=== PATIENT | male | born 1970 | race American Indian/Alaskan Native ===

== ENCOUNTER 2018-04-18 03:34 | Inpatient (IN) | payer MEDICARE, SELFPAY ==
--- NOTE | 2018-04-18 04:12 | XRay Report ---
PROCEDURE: XR CHEST 1V AP TECHNIQUE: A portable upright view the chest was submitted. HISTORY: Chest Pain COMPARISONS: None FINDINGS: The heart is moderately enlarged. The lungs are not congested. There are no infiltrates or effusions. The skeletal structures do not show any acute changes. IMPRESSION: Cardiomegaly. No acute infiltrates or congestion.. This document is electronically signed by Anthony Charlton MD., April 18 2018 04:10:08 AM ET
[2018-04-18 04:15] LABS: Basophils # (Auto) 0.1 K/mm3 (0.0-0.1); Basophils % (Auto) 0.6 % (0.0-1.8); Eosinophils % (Auto) 0.3 % (0.0-4.3); Hematocrit 45.4 % (35.5-45.6); Hemoglobin 14.6 gm/dl (11.8-15.2); Lymphocytes # (Auto) 2.2 K/mm3 (1.2-5.4); Lymphocytes % (Auto) 19.3 % (13.4-35.0); Mean Corpuscular HGB Conc 32 % (32-34); Mean Corpuscular Volume 93 fl (84-94); Monocytes # (Auto) 0.7 K/mm3 (0.0-0.8); Monocytes % (Auto) 6.3 % (0.0-7.3); Platelet Count 203 K/mm3 (140-440); Red Blood Count 4.89 M/mm3 (3.65-5.03); Red Cell Distribution Width 14.2 % (13.2-15.2)
[2018-04-18 04:41] LABS: BUN/Creatinine Ratio 17; Blood Urea Nitrogen 12 mg/dL (9-20); Calcium 9.6 mg/dL (8.4-10.2); Hemolysis Index 13
--- NOTE | 2018-04-18 06:17 | Emergency Department Report ---
ED Chest Pain HPI - General Chief Complaint: Chest Pain Stated Complaint: CHEST PAIN/SOB Time Seen by Provider: 04/18/18 06:05 Source: patient Mode of arrival: Ambulatory Limitations: No Limitations - History of Present Illness Initial Comments: Patient is a 47-year-old male presents emergency room with complaints of chest pain shortness of breath that started 1 hour prior to arrival. Patient states chest pain radiating to his left shoulder. Patient states the symptoms are worse with exertion and better with rest. Patient is also complaining of leg edema for several weeks. Patient denies fever and chills. Patient denies abdominal pain. Patient denies acid reflux. Patient states the pain is a 8 out of 10. MD Complaint: chest pain -: Sudden, Last night Onset: during rest Pain Location: substernal, left chest Pain Radiation: LUE Severity scale (0 -10): 8 Quality: tightness Consistency: constant Improves With: rest Worsens With: exertion re: dyspnea. denies: nausea, vomting, diaphoresis, sense of impending doom Other Symptoms: leg swelling. denies: cough, fever, syncope, rash, acid taste in mouth, palpitations, burping Treatments Prior to Arrival: none Aspirin use within the Past 7 Days: (0) No - Related Data On Oral Contraceptives: No Home Medications Medication Instructions Recorded Confirmed Last Taken Aspirin [Aspir-Low] 81 mg PO DAILY 04/18/18 04/18/18 Unknown Atenolol 50 mg PO DAILY 04/18/18 04/18/18 Unknown Bumetanide [Bumex 1 mg tab] 1 mg PO DAILY 04/18/18 04/18/18 Unknown Lisinopril/Hydrochlorothiazide 1 tab PO QDAY 04/18/18 04/18/18 Unknown [Zestoretic 20-25 mg] Potassium Chloride [K-Dur] 10 meq PO QDAY 04/18/18 04/18/18 Unknown Rosuvastatin Calcium 10 mg PO DAILY 04/18/18 04/18/18 Unknown metFORMIN [Glucophage] 500 mg PO DAILY 04/18/18 04/18/18 Unknown Allergies Allergy/AdvReac Type Severity Reaction Status Date / Time No Known Allergies Allergy Unverified 06/28/13 09:56 Heart Score - HEART Score History: Moderately suspicious EKG: Non-specific Age: 45-65 Risk factors: 1-2 risk factors Troponin: < normal limit HEART Score: 4 ED Review of Systems ROS: Stated complaint: CHEST PAIN/SOB Other details as noted in HPI Constitutional: denies: chills, fever Eyes: denies: eye pain, eye discharge, vision change ENT: denies: ear pain, throat pain Respiratory: shortness of breath, SOB with exertion, SOB at rest. denies: c ough, wheezing Cardiovascular: chest pain. denies: palpitations Endocrine: no symptoms reported Gastrointestinal: denies: abdominal pain, nausea, diarrhea Genitourinary: denies: urgency, dysuria Musculoskeletal: denies: back pain, joint swelling, arthralgia Skin: denies: rash, lesions Neurological: denies: headache, weakness, paresthesias Psychiatric: denies: anxiety, depression Hematological/Lymphatic: denies: easy bleeding, easy bruising ED Past Medical Hx - Past Medical History Previous Medical History?: Yes Hx Hypertension: Yes Additional medical history: Obesity - Surgical History Past Surgical History?: No - Family History Family history: no significant - Social History Smoking Status: Never Smoker Substance Use Type: None - Medications Home Medications: Home Medications Medication Instructions Recorded Confirmed Last Taken Type Aspirin [Aspir-Low] 81 mg PO DAILY 04/18/18 04/18/18 Unknown History Atenolol 50 mg PO DAILY 04/18/18 04/18/18 Unknown History Bumetanide [Bumex 1 mg tab] 1 mg PO DAILY 04/18/18 04/18/18 Unknown History Lisinopril/Hydrochlorothiazide 1 tab PO QDAY 04/18/18 04/18/18 Unknown History [Zestoretic 20-25 mg] Potassium Chloride [K-Dur] 10 meq PO QDAY 04/18/18 04/18/18 Unknown History Rosuvastatin Calcium 10 mg PO DAILY 04/18/18 04/18/18 Unknown History metFORMIN [Glucophage] 500 mg PO DAILY 04/18/18 04/18/18 Unknown History ED Physical Exam - General Limitations: No Limitations General appearance: alert, in no apparent distress - Head Head exam: Present: atraumatic, normocephalic - Eye Eye exam: Present: normal appearance, PERRL Pupils: Present: normal accommodation - ENT ENT exam: Present: mucous membranes moist - Neck Neck exam: Present: normal inspection - Respiratory Respiratory exam: Present: normal lung sounds bilaterally. Absent: respiratory distress - Cardiovascular Cardiovascular Exam: Present: regular rate, normal rhythm. Absent: systolic murmur, diastolic murmur, rubs, gallop - GI/Abdominal GI/Abdominal exam: Present: soft, normal bowel sounds - Rectal Rectal exam: Present: deferred - Extremities Exam Extremities exam: Present: pedal edema. Absent: calf tenderness - Back Exam Back exam: Present: normal inspection - Neurological Exam Neurological exam: Present: alert, oriented X3 - Psychiatric Psychiatric exam: Present: normal affect, normal mood - Skin Skin exam: Present: warm, dry, intact, normal color. Absent: rash ED Course Vital Signs 04/18/18 04/18/18 04/18/18 03:36 03:56 04:00 Temperature 98.5 F Pulse Rate 72 68 Respiratory 20 30 H 27 H Rate Blood Pressure 200/117 182/101 O2 Sat by Pulse 92 89 Oximetry 04/18/18 04/18/18 04/18/18 04:16 04:30 04:46 Temperature Pulse Rate 86 68 56 L Respiratory 24 14 27 H Rate Blood Pressure 150/75 140/73 146/72 O2 Sat by Pulse 89 82 L 79 L Oximetry 04/18/18 04/18/18 04/18/18 05:00 05:16 05:30 Temperature Pulse Rate 68 62 71 Respiratory 11 L 25 H 24 Rate Blood Pressure 142/68 160/93 156/85 O2 Sat by Pulse 89 72 L 94 Oximetry 04/18/18 04/18/18 04/18/18 05:46 06:00 06:30 Temperature Pulse Rate 57 L 65 Respiratory 24 16 Rate Blood Pressure 167/82 134/54 170/64 O2 Sat by Pulse 95 98 95 Oximetry 04/18/18 04/18/18 04/18/18 06:46 06:50 07:00 Temperature Pulse Rate 57 L Respiratory Rate Blood Pressure 172/63 167/82 154/88 O2 Sat by Pulse 94 99 Oximetry 04/18/18 04/18/18 04/18/18 07:16 07:30 07:46 Temperature Pulse Rate 46 L Respiratory 23 Rate Blood Pressure 149/73 154/72 163/88 O2 Sat by Pulse 98 93 96 Oximetry 04/18/18 04/18/18 04/18/18 08:00 08:16 09:10 Temperature Pulse Rate 47 L 71 73 Respiratory 24 22 11 L Rate Blood Pressure 186/107 199/93 126/54 O2 Sat by Pulse 91 95 93 Oximetry 04/18/18 04/18/18 04/18/18 09:16 09:30 09:46 Temperature Pulse Rate 71 74 65 Respiratory 17 21 18 Rate Blood Pressure 118/49 138/67 138/67 O2 Sat by Pulse 93 94 89 Oximetry 04/18/18 04/18/18 04/18/18 10:00 10:16 10:30 Temperature Pulse Rate 76 67 72 Respiratory 17 20 20 Rate Blood Pressure 155/69 155/69 121/56 O2 Sat by Pulse 87 91 89 Oximetry 04/18/18 04/18/18 04/18/18 10:46 11:00 11:16 Temperature Pulse Rate 60 70 68 Respiratory 25 H 12 12 Rate Blood Pressure 121/56 121/56 121/56 O2 Sat by Pulse 92 93 90 Oximetry 04/18/18 04/18/18 04/18/18 11:30 11:46 12:00 Temperature Pulse Rate 72 62 69 Respiratory 11 L 23 16 Rate Blood Pressure 132/57 132/57 132/57 O2 Sat by Pulse 95 92 94 Oximetry 04/18/18 04/18/18 04/18/18 12:16 12:30 12:46 Temperature Pulse Rate 66 56 L 64 Respiratory 24 16 22 Rate Blood Pressure 132/57 132/62 132/62 O2 Sat by Pulse 92 94 96 Oximetry 04/18/18 04/18/18 04/18/18 13:00 13:16 13:30 Temperature Pulse Rate 64 65 62 Respiratory 18 25 H 20 Rate Blood Pressure 132/62 132/62 132/62 O2 Sat by Pulse 93 92 93 Oximetry 04/18/18 04/18/18 04/18/18 13:46 14:00 14:16 Temperature Pulse Rate 73 67 70 Respiratory 22 25 H 16 Rate Blood Pressure 132/62 132/62 132/62 O2 Sat by Pulse 90 91 95 Oximetry 04/18/18 14:30 Temperature Pulse Rate 70 Respiratory 17 Rate Blood Pressure 120/66 O2 Sat by Pulse 93 Oximetry - Reevaluation(s) Reevaluation #1: BP elevated. Patient will be given hydralazine. On the monitor pressure is 201/100. 04/18/18 06:05 Patient will be admitted to the hospital service. Patient agrees with plan of care and admission. Discussed all results with patient. Her pressure has improved 04/18/18 07:36 - Consultations Consultation #1: Hospitalist consulted for admission. Hospitalist to admit patient and assume care of patient. Bridging orders were placed for hospitalist 04/18/18 07:39 ROBBIE score - Robbie Score Age > 65: (0) No Aspirin use within the Past 7 Days: (0) No 3 or more CAD Risk Factors: (0) No 2 or more Angina events in past 24 hrs: (1) Yes Known CAD with more than 50% Stenosis: (0) No Elevated Cardiac Markers: (0) No ST Deviation Greater than 0.5mm: (0) No ROBBIE Score: 1 ED Medical Decision Making - Lab Data Result diagrams: 04/18/18 04:04 04/18/18 04:04 - EKG Data -: EKG Interpreted by Me EKG shows normal: sinus rhythm, axis, intervals, QRS complexes, ST-T waves Rate: normal - Radiology Data Radiology results: report reviewed interpreted by me: Cardiomegaly - Medical Decision Making Patient is a 47-year-old male or since emergency room with complaints of chest pain and shortness of breath. Patient patient will be admitted to the hospitalist service for further evaluation treatment. Patient also had a complaint of bilateral lower extremity edema. BNP negative. Labs unremarkable. Troponins negative. EKG reviewed. Chest x-ray reviewed and shows cardiomegaly. Even though the BNP is negative it appears the patient is a CHF exacerbation. His blood pressure also high and treated with hydralazine. - Differential Diagnosis chest pain. ACS. Shortness of breath. chf Critical Care Time: Yes Critical care attestation.: If time is entered above; I have spent that time in minutes in the direct care of this critically ill patient, excluding procedure time. Critical Care Time: 45 minutes ED Disposition Clinical Impression: Leg edema, SOB (shortness of breath), Hypertensive urgency Chest pain Qualifiers: Chest pain type: unspecified Qualified Code(s): R07.9 - Chest pain, unspecified Hypertension Qualifiers: Hypertension type: essential hypertension Qualified Code(s): I10 - Essential (primary) hypertension Disposition: OP ADMIT IP TO THIS HOSP Is pt being admited?: Yes Does the pt Need Aspirin: No Condition: Critical Time of Disposition: 07:39
[2018-04-18] MEDS ORDERED: APRESOLINE IV ONE (06:22)
[2018-04-18] MEDS ORDERED: ASPIRIN PO ONE (06:22)
[2018-04-18] MEDS ORDERED: MORPHINE IV PRN (08:09)
[2018-04-18] MEDS ORDERED: SODIUM CHLORIDE FLUSH SYRINGE 10 ML IV PRN ×2 (08:09)
[2018-04-18] MEDS ORDERED: ZOFRAN IV PRN (08:09)
[2018-04-18] MEDS ORDERED: TYLENOL PO PRN (08:09)
[2018-04-18 08:55] LABS: Chol/HDL Ratio 4.71 %
[2018-04-18] MEDS ORDERED: FLEXERIL PO PRN (10:00)
--- NOTE | 2018-04-18 10:37 | History and Physical Report ---
History of Present Illness Date of examination: 04/18/18 Date of admission: 04/18/18 07:43 Chief complaint: chest pain for 2-3 weeks with worsening shortness of breath. History of present illness: Patient is a 47 year old male with hx of DM, HTN, CHF, Presenting to the ED with complaint of worsening chest pain rated a 8/10 in intensity and associated shortness of breath. The patient has been with chest pain for about 6 weeks on and off but states in the last 1 hour it has been constant and dull. The patient also reports that the pain has been radiating to the left shoulder. He reports that he has been unable to lay supine for years. He denies any fever, cough, nausea and vomiting, diarrhea, BRBPR. He reports worsening lower ext edema. Although he reports complaince with medication he reports non compliance with salt and water intake Past History Past Medical History: diabetes, hypertension, hyperlipidemia. denies: atrial fib, arrhythmia, CAD, DVT, PVD, stroke Past Surgical History: No surgical history Social history: lives with family, full code Family history: no significant family history Medications and Allergies Allergies Allergy/AdvReac Type Severity Reaction Status Date / Time No Known Allergies Allergy Unverified 06/28/13 09:56 Home Medications Medication Instructions Recorded Confirmed Last Taken Type Aspirin [Aspir-Low] 81 mg PO DAILY 04/18/18 04/18/18 Unknown History Atenolol 50 mg PO DAILY 04/18/18 04/18/18 Unknown History Bumetanide [Bumex 1 mg tab] 1 mg PO DAILY 04/18/18 04/18/18 Unknown History Lisinopril/Hydrochlorothiazide 1 tab PO QDAY 04/18/18 04/18/18 Unknown History [Zestoretic 20-25 mg] Potassium Chloride [K-Dur] 10 meq PO QDAY 04/18/18 04/18/18 Unknown History Rosuvastatin Calcium 10 mg PO DAILY 04/18/18 04/18/18 Unknown History metFORMIN [Glucophage] 500 mg PO DAILY 04/18/18 04/18/18 Unknown History Active Meds: Active Medications Acetaminophen (Tylenol) 650 mg PO Q4H PRN PRN Reason: Pain MILD(1-3)/Fever >100.5/MADERA Aspirin (Ecotrin) 325 mg PO QDAY [facility]O Atorvastatin Calcium (Lipitor) 40 mg PO QHS [facility]O Cyclobenzaprine HCl (Flexeril) 10 mg PO TID PRN PRN Reason: Pain Furosemide (Lasix) 40 mg IV 0600,1800 [facility] Morphine Sulfate (Morphine) 2 mg IV Q4H PRN PRN Reason: Pain, Moderate (4-6) Ondansetron HCl (Zofran) 4 mg IV Q8H PRN PRN Reason: Nausea And Vomiting Sodium Chloride (Sodium Chloride Flush Syringe 10 Ml) 10 ml IV BID AMYITO Sodium Chloride (Sodium Chloride Flush Syringe 10 Ml) 10 ml IV PRN PRN PRN Reason: LINE FLUSH Sodium Chloride (Sodium Chloride Flush Syringe 10 Ml) 10 ml IV PRN PRN PRN Reason: LINE FLUSH Review of Systems All systems: negative Constitutional: no fever, no chills, no weakness, no malaise, no poor appetite, no daytime sleepiness, no chronic pain Ears, nose, mouth and throat: no ear pain, no ear discharge, no nose pain Cardiovascular: chest pain, orthopnea, edema, shortness of breath, dyspnea on exertion, paroxysmal nocturnal dyspnea, no palpitations, no rapid/irregular heart beat, no syncope, no lightheadedness Respiratory: shortness of breath, dyspnea on exertion, sleep apnea, no cough, no cough with sputum, no excessive sputum, no hemoptysis, no congestion, no wheezing, no pain on inspiration Gastrointestinal: no abdominal pain, no nausea, no vomiting, no constipation, no change in bowel habits, no melena, no loss of appetite, no heartburn, no dyspepsia/bloating, no early satiety Musculoskeletal: no neck stiffness, no shooting arm pain, no low back pain, no shooting leg pain, no leg numbness/tingling, no morning stiffness, no muscle cramps, no fractures, no prior amputations, no arthritis Integumentary: dryness, no pruritis, no sores, no jaundice, no darkening of skin, no acne, no brittle nails, no striae, no hirsutism, no foot/leg ulcers, no onychomycosis Neurological: no transient paralysis, no weakness, no numbness, no syncope, no migraines, no convulsions, no confusion, no sensory deficit, no loss of vision, no hearing difficulties, no paralysis Psychiatric: no memory loss, no change in sleep habits, no sleep disturbances, no hypersomnia, no change in appetite, no suicidal ideation, no hopelessness, no anxiety attacks, no confusion Endocrine: no polyphagia, no excessive thirst, no polyuria, no proptosis, no high blood sugars Hematologic/Lymphatic: no easy bruising Allergic/Immunologic: no urticaria, no wheezing Exam - Physical Exam Narrative exam: General appearance: Mild distress currently on oxygen, morbidly obese HEENT: EOMI, Normocephaly, Mucus Membranes Moist Neck: neck supple, trachea midline, enlarge neck elevated JVD/HJR Cardiac: Reg Rate and Rhythm, S1/S2 Lungs: clear to auscultation Neuro: Grossly Intact Abdomen: Soft, Active Bowel Sounds. Negative: Tender Skin:Clear. Negative: Rash Musculoskeletal: Normal Range of Motion Extremities: Present: +3 Edema (pitting bilateral leg edema) - Constitutional Vitals: Temp Pulse Resp BP Pulse Ox 98.5 F 67 20 155/69 91 04/18/18 03:36 04/18/18 10:16 04/18/18 10:16 04/18/18 10:16 04/18/18 10:16 General appearance: Present: mild distress, well-nourished, obese - EENT Eyes: Present: PERRL, EOM intact ENT: hearing intact, clear oral mucosa, dentition normal - Neck Neck: Present: supple, normal ROM - Cardiovascular Rhythm: regular Heart Sounds: Present: S1 & S2. Absent: systolic murmur - Extremities Extremities: no ischemia, pulses intact, pulses symmetrical, normal temperature, normal color, Full ROM Extremity abnormal: edema, clubbing Peripheral Pulses: within normal limits - Abdominal General gastrointestinal: Present: soft, non-tender, non-distended, normal bowel sounds, hypoactive bowel sounds - Integumentary Integumentary: Present: clear, warm, dry - Musculoskeletal Musculoskeletal: strength equal bilaterally, generalized weakness - Psychiatric Psychiatric: appropriate mood/affect, intact judgment & insight, memory intact, cooperative - Neurologic Neurologic: CNII-XII intact, moves all extremities - Allied Health Allied health notes reviewed: nursing Results - Labs CBC & Chem 7: 04/18/18 04:04 04/18/18 04:04 Labs: Laboratory Last Values WBC 11.3 K/mm3 (4.5-11.0) H 04/18/18 04:04 RBC 4.89 M/mm3 (3.65-5.03) 04/18/18 04:04 Hgb 14.6 gm/dl (11.8-15.2) 04/18/18 04:04 Hct 45.4 % (35.5-45.6) 04/18/18 04:04 MCV 93 fl (84-94) 04/18/18 04:04 MCH 30 pg (28-32) 04/18/18 04:04 MCHC 32 % (32-34) 04/18/18 04:04 RDW 14.2 % (13.2-15.2) 04/18/18 04:04 Plt Count 203 K/mm3 (140-440) 04/18/18 04:04 Lymph % (Auto) 19.3 % (13.4-35.0) 04/18/18 04:04 [place] % (Auto) 6.3 % (0.0-7.3) 04/18/18 04:04 Eos % (Auto) 0.3 % (0.0-4.3) 04/18/18 04:04 Baso % (Auto) 0.6 % (0.0-1.8) 04/18/18 04:04 Lymph # 2.2 K/mm3 (1.2-5.4) 04/18/18 04:04 [place] # 0.7 K/mm3 (0.0-0.8) 04/18/18 04:04 Eos # 0.0 K/mm3 (0.0-0.4) 04/18/18 04:04 Baso # 0.1 K/mm3 (0.0-0.1) 04/18/18 04:04 Seg Neutrophils % 73.5 % (40.0-70.0) H 04/18/18 04:04 Seg Neutrophils # 8.3 K/mm3 (1.8-7.7) H 04/18/18 04:04 Sodium 139 mmol/L (137-145) 04/18/18 04:04 Potassium 4.1 mmol/L (3.6-5.0) 04/18/18 04:04 Chloride 97.0 mmol/L (98-107) L 04/18/18 04:04 Carbon Dioxide 31 mmol/L (22-30) H 04/18/18 04:04 Anion Gap 15 mmol/L 04/18/18 04:04 BUN 12 mg/dL (9-20) 04/18/18 04:04 Creatinine 0.7 mg/dL (0.8-1.5) L 04/18/18 04:04 Estimated GFR > 60 ml/min 04/18/18 04:04 BUN/Creatinine Ratio 17 % 04/18/18 04:04 Glucose 172 mg/dL (75-100) H 04/18/18 04:04 Calcium 9.6 mg/dL (8.4-10.2) 04/18/18 04:04 Troponin T < 0.010 ng/mL (0.00-0.029) 04/18/18 09:18 NT-Pro-B Natriuret Pep 73.36 pg/mL (0-450) 04/18/18 06:57 Triglycerides 118 mg/dL (2-149) 04/18/18 06:20 Cholesterol 184 mg/dL (50-199) 04/18/18 06:20 LDL Cholesterol Direct 148 mg/dL (50-130) H 04/18/18 06:20 HDL Cholesterol 39 mg/dL (40-59) L 04/18/18 06:20 Cholesterol/HDL Ratio 4.71 % 04/18/18 06:20 - Imaging and Cardiology Chest x-ray: image reviewed (cardiomegaly) Assessment and Plan Assessment and plan: Patient is a 47 year old male with hx of DM, HTN, CHF, Morbid obesity Presenting to the ED with complaint of worsening chest pain rated a 8/10 in intensity and associated shortness of breath. The patient has been with chest pain for about 6 weeks on and off but states in the last 1 hour it has been constant and dull. The patient also reports that the pain has been radiating to the left shoulder. He reports that he has been unable to lay supine for years. He denies any fever, cough, nausea and vomiting, diarrhea, BRBPR. He reports worsening lower ext edema. Although he reports compliance with medication he reports non compliance with salt and water intake Chest pain Hypertensive urgency Acute on Chronic systolic HEART FAILURE Morbid Obesity with possible Underlying Sleep Apnea ?Underlying Pulmonary Hypertension. Diabetes Mellitus with hyperglycemia Leukocytosis Plan Admit to Telemetry Chest pain and CHF Protocol, daily weight, Cardiology consult Monitor for any fever, leukocytosis could be reactive ASA, LASIX IV, BB and pain control Insulin and accu checks Monitor Renal function Weight loss and NICHOLAS work up strongly recommended and counselling provided, patient verbalized understanding DVT/GI Plan discussed with the patient and spouse. Advance Directives: Yes Plan of care discussed with patient/family: Yes
[2018-04-18] MEDS: LASIX IV SCH ×2 (11:15→21:38)
[2018-04-18] MEDS ORDERED: LASIX ONE (11:30)
--- NOTE | 2018-04-18 11:49 | Consultation ---
History of Present Illness Consult date: 04/18/18 Requesting physician: LUNA RAMOS Consult reason: chest pain History of present illness: The patient claims that he started experiencing substernal chest pressure radiating to his left upper extremity at about 10 PM last night. He also complains of shortness of breath. He claims that he has been experiencing orthopnea with exertional dyspnea for the past 6 months. He also has chronic leg edema. His who was at the bedside during the interview claims that he snores heavily at night, demonstrates apneic spells and daytime somnolence. Past History Past Medical History: heart failure, hypertension Past Surgical History: No surgical history Social history: denies: smoking, alcohol abuse Family history: CAD Medications and Allergies Allergies Allergy/AdvReac Type Severity Reaction Status Date / Time No Known Allergies Allergy Unverified 06/28/13 09:56 Home Medications Medication Instructions Recorded Confirmed Last Taken Type Aspirin [Aspir-Low] 81 mg PO DAILY 04/18/18 04/18/18 Unknown History Atenolol 50 mg PO DAILY 04/18/18 04/18/18 Unknown History Bumetanide [Bumex 1 mg tab] 1 mg PO DAILY 04/18/18 04/18/18 Unknown History Lisinopril/Hydrochlorothiazide 1 tab PO QDAY 04/18/18 04/18/18 Unknown History [Zestoretic 20-25 mg] Potassium Chloride [K-Dur] 10 meq PO QDAY 04/18/18 04/18/18 Unknown History Rosuvastatin Calcium 10 mg PO DAILY 04/18/18 04/18/18 Unknown History metFORMIN [Glucophage] 500 mg PO DAILY 04/18/18 04/18/18 Unknown History Active Meds: Active Medications Acetaminophen (Tylenol) 650 mg PO Q4H PRN PRN Reason: Pain MILD(1-3)/Fever >100.5/MADERA Aspirin (Ecotrin) 325 mg PO QDAY MAYITO Atorvastatin Calcium (Lipitor) 40 mg PO QHS MAYITO Cyclobenzaprine HCl (Flexeril) 10 mg PO TID PRN PRN Reason: Pain Furosemide (Lasix) 40 mg IV 0600,1800 [place]ITO Morphine Sulfate (Morphine) 2 mg IV Q4H PRN PRN Reason: Pain, Moderate (4-6) Ondansetron HCl (Zofran) 4 mg IV Q8H PRN PRN Reason: Nausea And Vomiting Sodium Chloride (Sodium Chloride Flush Syringe 10 Ml) 10 ml IV BID MAYITO Sodium Chloride (Sodium Chloride Flush Syringe 10 Ml) 10 ml IV PRN PRN PRN Reason: LINE FLUSH Sodium Chloride (Sodium Chloride Flush Syringe 10 Ml) 10 ml IV PRN PRN PRN Reason: LINE FLUSH Review of Systems Constitutional: no fever, no chills Ears, nose, mouth and throat: no ear pain, no ear discharge, no sore throat Cardiovascular: chest pain, orthopnea, shortness of breath, dyspnea on exertion, paroxysmal nocturnal dyspnea, no palpitations, no lightheadedness Respiratory: dyspnea on exertion, sleep apnea, no cough, no hemoptysis Gastrointestinal: no nausea, no vomiting, no diarrhea, no constipation Genitourinary Male: no dysuria, no urinary frequency Rectal: no pain, no bleeding Musculoskeletal: no neck stiffness, no neck pain, no myalgias Integumentary: no rash, no pruritis Neurological: no weakness, no parathesias, no headaches Endocrine: no cold intolerance, no heat intolerance Hematologic/Lymphatic: no easy bruising, no easy bleeding Allergic/Immunologic: no urticaria, no wheezing Physical Examination Vital Signs Temp Pulse Resp BP Pulse Ox 98.5 F 72 20 200/117 92 04/18/18 03:36 04/18/18 03:36 04/18/18 03:36 04/18/18 03:36 04/18/18 03:36 General appearance: no acute distress HEENT: Positive: EOMI, Normocephaly, Mucus Membranes Moist Neck: Positive: neck supple, trachea midline, JVD/HJR (elevated) Cardiac: Positive: Reg Rate and Rhythm, S1/S2 Lungs: Positive: clear to auscultation Neuro: Positive: Grossly Intact Abdomen: Positive: Soft, Active Bowel Sounds. Negative: Tender Skin: Positive: Clear. Negative: Rash Musculoskeletal: Normal Range of Motion Extremities: Present: +3 Edema (pitting bilateral leg edema) Results 04/18/18 04:04 04/18/18 04:04 Lipids 04/18/18 Range/Units 06:20 Triglycerides 118 (2-149) mg/dL Cholesterol 184 (50-199) mg/dL HDL Cholesterol 39 L (40-59) mg/dL Cholesterol/HDL Ratio 4.71 % CBC 04/18/18 Range/Units 04:04 WBC 11.3 H (4.5-11.0) K/mm3 RBC 4.89 (3.65-5.03) M/mm3 Hgb 14.6 (11.8-15.2) gm/dl Hct 45.4 (35.5-45.6) % Plt Count 203 (140-440) K/mm3 Lymph # 2.2 (1.2-5.4) K/mm3 [place] # 0.7 (0.0-0.8) K/mm3 Eos # 0.0 (0.0-0.4) K/mm3 Baso # 0.1 (0.0-0.1) K/mm3 Comprehensive Metabolic Panel 04/18/18 Range/Units 04:04 Sodium 139 (137-145) mmol/L Potassium 4.1 (3.6-5.0) mmol/L Chloride 97.0 L (98-107) mmol/L Carbon Dioxide 31 H (22-30) mmol/L BUN 12 (9-20) mg/dL Creatinine 0.7 L (0.8-1.5) mg/dL Glucose 172 H (75-100) mg/dL Calcium 9.6 (8.4-10.2) mg/dL - Imaging and Cardiology EKG: image reviewed EKG interpretations - Telemetry EKG Rhythm: Sinus Rhythm - EKG Sinus rhythms and dysrhythmias: sinus rhythm Assessment and Plan Optimize antihypertensive regimen. Initiate guideline directed heart failure therapy. Obtain echocardiogram. Due to his severe obesity, he may not be able to undergo stress testing at this hospital since he may be overweight for the nuclear lab table. In that case, he may have to undergo stress testing as an outpatient at another facility. - Patient Problems (1) Chest pain Current Visit: Yes Status: Acute Qualifiers: Chest pain type: unspecified Qualified Code(s): R07.9 - Chest pain, unspecified (2) Hypertensive urgency Current Visit: Yes Status: Acute (3) Chronic heart failure Current Visit: Yes Status: Chronic (4) Suspected sleep apnea Current Visit: Yes Status: Chronic (5) Morbid obesity Current Visit: Yes Status: Chronic
--- NOTE | 2018-04-18 12:47 | Vascular Lab Report ---
PROCEDURE: VL VENOUS DUPLEX LE BILAT TECHNIQUE: Ultrasound examination of the deep venous system of the right leg and left leg HISTORY: Bilateral lower extremity swelling, dvt COMPARISONS: None FINDINGS: Patient body habitus limits examination. RIGHT LEG: Normal compressibility, vascular patency, and augmentation are present diffusely throughout the visua lized portion of the deep veins. No abnormal intraluminal echoes are visualized to suggest deep vein thrombus. LEFT LEG: Normal compressibility, vascular patency, and augmentation are present diffusely throughout the visua lized portion of the deep veins. No abnormal intraluminal echoes are visualized to suggest deep vein thrombus. IMPRESSION: No ultrasound evidence of DVT in the right leg No ultrasound evidence of DVT in the left leg This document is electronically signed by Aris Claire MD., April 18 2018 12:45:04 PM ET
[2018-04-18 13:43] LABS: Creatine Kinase MB 1.4 ng/mL (0.0-4.0)
[2018-04-18 18:20] LABS: Creatine Kinase MB 1.3 ng/mL (0.0-4.0)
[2018-04-18] MEDS: COREG PO SCH (21:35)
[2018-04-18] MEDS: SODIUM CHLORIDE FLUSH SYRINGE 10 ML IV SCH (21:35)
[2018-04-19] MEDS: SODIUM CHLORIDE FLUSH SYRINGE 10 ML IV SCH ×3 (03:26→21:41)
[2018-04-19] MEDS: LASIX IV SCH ×2 (05:10→17:24)
[2018-04-19 06:15] LABS: Basophils % (Auto) 0.1 % (0.0-1.8); Eosinophils % (Auto) 0.3 % (0.0-4.3); Hematocrit 45.6 % (35.5-45.6); Hemoglobin 14.6 gm/dl (11.8-15.2); Lymphocytes # (Auto) 2.2 K/mm3 (1.2-5.4); Lymphocytes % (Auto) 16.8 % (13.4-35.0); Mean Corpuscular HGB Conc 32 % (32-34); Mean Corpuscular Volume 94 fl (84-94); Monocytes # (Auto) 0.7 K/mm3 (0.0-0.8); Monocytes % (Auto) 5.7 % (0.0-7.3); Platelet Count 224 K/mm3 (140-440); Red Blood Count 4.87 M/mm3 (3.65-5.03); Red Cell Distribution Width 14.7 % (13.2-15.2)
[2018-04-19 06:26] LABS: Alanine Aminotransferase 12 units/L (7-56); Albumin 3.6 g/dL (3.9-5); BUN/Creatinine Ratio 18; Blood Urea Nitrogen 11 mg/dL (9-20); Calcium 9.2 mg/dL (8.4-10.2); Hemolysis Index 38
[2018-04-19] MEDS ORDERED: ZESTRIL PO SCH ×3 (10:00→22:00)
[2018-04-19] MEDS ORDERED: NON-FORMULARY (Rosuvastatin Calcium [Rosuvastatin Calcium] 10 MG) PO SCH (10:00)
[2018-04-19] MEDS ORDERED: TENORMIN PO SCH (10:00)
[2018-04-19] MEDS ORDERED: HCTZ PO SCH (10:00)
[2018-04-19] MEDS ORDERED: NON-FORMULARY (Lisinopril/Hydrochlorothiazide [Zestoretic 20-25 Mg] 1 TAB) PO SCH (10:00)
[2018-04-19] MEDS: ECOTRIN PO SCH (10:53)
[2018-04-19] MEDS: COREG PO SCH ×3 (10:53→23:14)
[2018-04-19] MEDS: K-DUR PO SCH (10:54)
--- NOTE | 2018-04-19 11:03 | Progress Note ---
Assessment and Plan Echo reviewed - EF 50%, trace MR, mod LVH, impaired relaxation, RV mild to mod dilated. Optimize antihypertensive regimen. Cont guideline directed heart failure therapy as tolerated. Obtain echocardiogram. Due to his severe obesity, he may not be able to undergo stress testing at this hospital since he may be overweight for the nuclear lab table. In that case, he may have to undergo stress testing as an outpatient at another facility. The patient has been seen in conjunction with Dr. Foreman who agrees with the assessment and plan of care. - Patient Problems (1) Acute on chronic heart failure with preserved ejection fraction Current Visit: Yes Status: Acute (2) Chest pain Current Visit: Yes Status: Acute Qualifiers: Chest pain type: unspecified Qualified Code(s): R07.9 - Chest pain, unspecified (3) Hypertensive urgency Current Visit: Yes Status: Acute (4) Morbid obesity Current Visit: Yes Status: Chronic (5) Suspected sleep apnea Current Visit: Yes Status: Chronic Subjective Date of service: 04/19/18 Principal diagnosis: cp; htn; hf Interval history: pt sitting up at bedside, states he is feeling better today. BPs improved. tele reviewed - pt in SR with SB and occasional 1-2 sec pauses overnight while sle eping, likely r/t sleep apnea. Objective Last Vital Signs Temp 97.2 F L 04/19/18 08:47 Pulse 75 04/19/18 10:53 Resp 18 04/19/18 08:47 BP 185/65 04/19/18 10:53 Pulse Ox 83 L 04/19/18 04:36 - Physical Examination General: No Apparent Distress HEENT: Positive: EOMI, Normocephaly, Mucus Membranes Moist Neck: Positive: neck supple, trachea midline, JVD/HJR (elevated) Cardiac: Positive: Reg Rate and Rhythm, S1/S2 Lungs: Positive: Decreased Breath Sounds Neuro: Positive: Grossly Intact Abdomen: Positive: Soft, Active Bowel Sounds. Negative: Tender Skin: Positive: Clear. Negative: Rash Musculoskeletal: Normal Range of Motion Extremities: Present: +3 Edema (pitting bilateral leg edema) - Labs and Meds Cardiac Enzymes 04/18/18 04/18/18 04/19/18 Range/Units 13:00 17:51 05:13 AST 13 (5-40) units/L CK-MB (CK-2) 1.4 1.3 (0.0-4.0) ng/mL CBC 04/19/18 Range/Units 05:13 WBC 12.8 H (4.5-11.0) K/mm3 RBC 4.87 (3.65-5.03) M/mm3 Hgb 14.6 (11.8-15.2) gm/dl Hct 45.6 (35.5-45.6) % Plt Count 224 (140-440) K/mm3 Lymph # 2.2 (1.2-5.4) K/mm3 [place] # 0.7 (0.0-0.8) K/mm3 Eos # 0.0 (0.0-0.4) K/mm3 Baso # 0.0 (0.0-0.1) K/mm3 Comprehensive Metabolic Panel 04/19/18 Range/Units 05:13 Sodium 140 (137-145) mmol/L Potassium 4.2 (3.6-5.0) mmol/L Chloride 96.9 L (98-107) mmol/L Carbon Dioxide 32 H (22-30) mmol/L BUN 11 (9-20) mg/dL Creatinine 0.6 L (0.8-1.5) mg/dL Glucose 158 H (75-100) mg/dL Calcium 9.2 (8.4-10.2) mg/dL AST 13 (5-40) units/L ALT 12 (7-56) units/L Alkaline Phosphatase 57 (35-129) units/L Total Protein 7.3 (6.3-8.2) g/dL Albumin 3.6 L (3.9-5) g/dL - Imaging and Cardiology EKG: image reviewed - EKG Sinus rhythms and dysrhythmias: sinus rhythm
[2018-04-19] MEDS ORDERED: COREG PO SCH (13:10)
--- NOTE | 2018-04-19 15:20 | Progress Note ---
Assessment and Plan Assessment and plan: Patient is a 47 year old male with hx of DM, HTN, CHF, Morbid obesity Presenting to the ED with complaint of worsening chest pain rated a 8/10 in intensity and associated shortness of breath. The patient has been with chest pain for about 6 weeks on and off but states in the last 1 hour it has been constant and dull. The patient also reports that the pain has been radiating to the left shoulder. He reports that he has been unable to lay supine for years. He denies any fever, cough, nausea and vomiting, diarrhea, BRBPR. He reports worsening lower ext edema. Although he reports compliance with medication he reports non compliance with salt and water intake. Echo done EF 50% trace MR, mod LVH, impaired relaxation, RV mild to mod dilated. Chest pain- LIKELY COSTOCHONDRITIS Hypertensive urgency Acute on Chronic systolic HEART FAILURE Morbid Obesity with possible Underlying Sleep Apnea ?Underlying Pulmonary Hypertension. Diabetes Mellitus with hyperglycemia Leukocytosis Plan Continue supportive care Monitor leukocytosis- likely reactive Unable to undergo stress testing due to weight limitations Cardiology recommend another day of IV Lasix Will need home O2 eval prior to discharge Chest pain and CHF Protocol, daily weight, Recommended outpatient Vascular eval Monitor for any fever, leukocytosis could be reactive ASA, LASIX IV, BB and pain control Insulin and accu checks Monitor Renal function Weight loss and NICHOLAS work up strongly recommended and counselling provided, patient verbalized understanding DVT/GI Plan discussed with the patient and spouse. Possible discharge in am ( History Interval history: Patient seen and examined today, no acute distress. Reports improvement in shortness of breath. Hospitalist Physical - Physical exam Narrative exam: General appearance: No distress. currently on oxygen, morbidly obese HEENT: EOMI, Normocephaly, Mucus Membranes Moist Neck: neck supple, trachea midline, enlarge neck elevated JVD/HJR Cardiac: Reg Rate and Rhythm, S1/S2 Lungs: clear to auscultation Neuro: Grossly Intact Abdomen: Soft, Active Bowel Sounds. Negative: Tender Skin:Clear. Negative: Rash Musculoskeletal: Normal Range of Motion Extremities: Present: +3 Edema (pitting bilateral leg edema) - Constitutional Vitals: Temp Pulse Resp BP Pulse Ox 97.2 F L 75 18 185/65 83 L 04/19/18 08:47 04/19/18 10:53 04/19/18 08:47 04/19/18 10:53 04/19/18 04:36 General appearance: Present: mild distress, well-nourished, obese Results - Labs CBC & Chem 7: 04/19/18 05:13 04/19/18 05:13 Labs: Laboratory Last Values WBC 12.8 K/mm3 (4.5-11.0) H 04/19/18 05:13 RBC 4.87 M/mm3 (3.65-5.03) 04/19/18 05:13 Hgb 14.6 gm/dl (11.8-15.2) 04/19/18 05:13 Hct 45.6 % (35.5-45.6) 04/19/18 05:13 MCV 94 fl (84-94) 04/19/18 05:13 MCH 30 pg (28-32) 04/19/18 05:13 MCHC 32 % (32-34) 04/19/18 05:13 RDW 14.7 % (13.2-15.2) 04/19/18 05:13 Plt Count 224 K/mm3 (140-440) 04/19/18 05:13 Lymph % (Auto) 16.8 % (13.4-35.0) 04/19/18 05:13 [place] % (Auto) 5.7 % (0.0-7.3) 04/19/18 05:13 Eos % (Auto) 0.3 % (0.0-4.3) 04/19/18 05:13 Baso % (Auto) 0.1 % (0.0-1.8) 04/19/18 05:13 Lymph # 2.2 K/mm3 (1.2-5.4) 04/19/18 05:13 [place] # 0.7 K/mm3 (0.0-0.8) 04/19/18 05:13 Eos # 0.0 K/mm3 (0.0-0.4) 04/19/18 05:13 Baso # 0.0 K/mm3 (0.0-0.1) 04/19/18 05:13 Seg Neutrophils % 77.1 % (40.0-70.0) H 04/19/18 05:13 Seg Neutrophils # 9.9 K/mm3 (1.8-7.7) H 04/19/18 05:13 Sodium 140 mmol/L (137-145) 04/19/18 05:13 Potassium 4.2 mmol/L (3.6-5.0) 04/19/18 05:13 Chloride 96.9 mmol/L (98-107) L 04/19/18 05:13 Carbon Dioxide 32 mmol/L (22-30) H 04/19/18 05:13 Anion Gap 15 mmol/L 04/19/18 05:13 BUN 11 mg/dL (9-20) 04/19/18 05:13 Creatinine 0.6 mg/dL (0.8-1.5) L 04/19/18 05:13 Estimated GFR > 60 ml/min 04/19/18 05:13 BUN/Creatinine Ratio 18 % 04/19/18 05:13 Glucose 158 mg/dL (75-100) H 04/19/18 05:13 POC Glucose 122 (70-105) H 04/18/18 14:30 Calcium 9.2 mg/dL (8.4-10.2) 04/19/18 05:13 Total Bilirubin 1.30 mg/dL (0.1-1.2) H 04/19/18 05:13 AST 13 units/L (5-40) 04/19/18 05:13 ALT 12 units/L (7-56) 04/19/18 05:13 Alkaline Phosphatase 57 units/L (35-129) 04/19/18 05:13 Total Creatine Kinase 87 units/L (55-170) 04/18/18 17:51 CK-MB (CK-2) 1.3 ng/mL (0.0-4.0) 04/18/18 17:51 CK-MB (CK-2) Rel Index 1.4 (0-4) 04/18/18 17:51 Troponin T < 0.010 ng/mL (0.00-0.029) 04/18/18 17:51 NT-Pro-B Natriuret Pep 73.36 pg/mL (0-450) 04/18/18 06:57 Total Protein 7.3 g/dL (6.3-8.2) 04/19/18 05:13 Albumin 3.6 g/dL (3.9-5) L 04/19/18 05:13 Albumin/Globulin Ratio 1.0 % 04/19/18 05:13 Triglycerides 118 mg/dL (2-149) 04/18/18 06:20 Cholesterol 184 mg/dL (50-199) 04/18/18 06:20 LDL Cholesterol Direct 148 mg/dL (50-130) H 04/18/18 06:20 HDL Cholesterol 39 mg/dL (40-59) L 04/18/18 06:20 Cholesterol/HDL Ratio 4.71 % 04/18/18 06:20
[2018-04-19] MEDS: ZESTRIL PO SCH (21:40)
[2018-04-20] MEDS: LASIX IV SCH (05:49)
[2018-04-20] MEDS: COREG PO SCH ×2 (10:55→21:21)
[2018-04-20] MEDS: ECOTRIN PO SCH (10:55)
[2018-04-20] MEDS: K-DUR PO SCH (10:55)
[2018-04-20] MEDS: SODIUM CHLORIDE FLUSH SYRINGE 10 ML IV SCH ×2 (10:55→21:22)
[2018-04-20] MEDS: ZESTRIL PO SCH ×3 (10:55→23:26)
--- NOTE | 2018-04-20 11:41 | Progress Note ---
Assessment and Plan Change Lasix to PO once daily. Reduce Coreg dose due to galina-arrhythmias and increase lisinopril dose. He will be observed on the monitor overnight for any significant bradyarrhythmias. Ultimately, he will need outpatient sleep study as well as pharmacologic stress testing at [facility] as an outpatient. - Patient Problems (1) Acute on chronic heart failure with preserved ejection fraction Current Visit: Yes Status: Acute (2) Chest pain Current Visit: Yes Status: Resolved Qualifiers: Chest pain type: unspecified Qualified Code(s): R07.9 - Chest pain, unspecified (3) Hypertensive urgency Current Visit: Yes Status: Acute (4) Suspected sleep apnea Current Visit: Yes Status: Chronic (5) Sinus node dysfunction Current Visit: Yes Status: Acute (6) Hypertensive heart disease Current Visit: Yes Status: Chronic (7) Morbid obesity Current Visit: Yes Status: Chronic Subjective Date of service: 04/20/18 Principal diagnosis: Acute on chronic HFpEF, CP, HTNsive urgency, Suspected NICHOLAS, Pauses Interval history: No complaint. He demonstrated periods of junctional bradycardia and pauses casey y this morning while awake and while sleeping. Objective Vital Signs Temp Pulse Resp BP Pulse Ox 04/20/18 10:55 73 131/67 04/20/18 10:26 98.0 F 73 20 131/67 93 04/20/18 05:51 98.5 F 74 16 126/60 84 04/20/18 01:00 72 04/19/18 23:59 98.6 F 79 18 117/53 95 04/19/18 21:44 99.2 F 74 18 141/89 90 04/19/18 20:38 92 04/19/18 17:24 71 136/89 04/19/18 16:52 98.2 F 18 136/89 - Physical Examination General: No Apparent Distress HEENT: Positive: EOMI, Normocephaly, Mucus Membranes Moist Neck: Positive: neck supple, trachea midline, JVD/HJR (elevated) Cardiac: Positive: Reg Rate and Rhythm, S1/S2 Lungs: Positive: clear to auscultation Neuro: Positive: Grossly Intact Abdomen: Positive: Soft, Active Bowel Sounds. Negative: Tender Skin: Positive: Clear. Negative: Rash Musculoskeletal: Normal Range of Motion Extremities: Present: edema (Trace leg edema) - Imaging and Cardiology EKG: image reviewed - Telemetry EKG Rhythm: Marked Bradycardia - EKG Sinus rhythms and dysrhythmias: sinus rhythm
[2018-04-20 12:33] LABS: BUN/Creatinine Ratio 16; Blood Urea Nitrogen 13 mg/dL (9-20); Calcium 9.1 mg/dL (8.4-10.2); Hemolysis Index 12
--- NOTE | 2018-04-20 15:56 | Progress Note ---
Assessment and Plan Chest pain- LIKELY COSTOCHONDRITIS Hypertensive urgency Acute on Chronic HEART FAILURE with preserved EF Morbid Obesity with possible Underlying Sleep Apnea ?Underlying Pulmonary Hypertension. Diabetes Mellitus with hyperglycemia Leukocytosis, reactive, monitor for fever Plan Continue supportive care Monitor leukocytosis- likely reactive Unable to undergo stress testing due to weight limitations Cardiology recommend another day of tele monitoring Will need home O2 eval prior to discharge Chest pain and CHF Protocol, daily weight, Recommended outpatient Vascular eval and cardiac evel at tertiary center ASA, LASIX IV, BB and pain control Insulin and accu checks Monitor Renal function Weight loss and NICHOLAS work up strongly recommended and counselling provided, patient verbalized understanding DVT/GI Px Possible discharge in am if clears by cardiology Brief History; Patient is a 47 year old male with hx of DM, HTN, CHF, Morbid obesity Presenting to the ED with complaint of worsening chest pain rated a 8/10 in intensity and associated shortness of breath. He reports that he has been unable to lay supine for years. He denies any fever, cough, nausea and vomiting, diarrhea, BRBPR. He reports worsening lower ext edema. Although he reports compliance with medication he reports non compliance with salt and water intake. Echo done EF 50% trace MR, mod LVH, impaired relaxation, RV mild to mod dilated. Hospitalist Physical General appearance: No distress. currently on oxygen, morbidly obese HEENT: EOMI, Normocephaly, Mucus Membranes Moist Neck: neck supple, trachea midline, enlarge neck elevated JVD/HJR Cardiac: Reg Rate and Rhythm, S1/S2 Lungs: clear to auscultation Neuro: Grossly Intact Abdomen: Soft, Active Bowel Sounds. Negative: Tender Skin:Clear. Negative: Rash Musculoskeletal: Normal Range of Motion Extremities: Present: +3 Edema (pitting bilateral leg edema) Subjective Date of service: 04/20/18 Principal diagnosis: Acute on chronic HFpEF, CP, HTNsive urgency, Suspected NICHOLAS, Pauses Interval history: Patient seen and examined today, no acute distress. Reports improvement in shortness of breath. Could not do stress test today b/o overweight Objective - Constitutional Vitals: Vital Signs - 12hr 04/20/18 04/20/18 04/20/18 05:51 09:00 10:00 Temperature 98.5 F Pulse Rate 74 71 Pulse Rate [ 73 From Monitor] Respiratory 16 20 Rate Blood Pressure 126/60 O2 Sat by Pulse 84 93 Oximetry 04/20/18 04/20/18 10:26 10:55 Temperature 98.0 F Pulse Rate 73 73 Pulse Rate [ From Monitor] Respiratory 20 Rate Blood Pressure 131/67 131/67 O2 Sat by Pulse 93 Oximetry - Labs CBC & Chem 7: 04/19/18 05:13 04/21/18 05:00 Labs: Abnormal lab results 04/20/18 04/20/18 04/20/18 Range/Units 08:32 11:46 11:47 Chloride 95.3 L (98-107) mmol/L Carbon Dioxide 32 H (22-30) mmol/L Glucose 180 H (75-100) mg/dL POC Glucose 144 H 170 H (70-105)
[2018-04-21 07:38] LABS: BUN/Creatinine Ratio 16; Blood Urea Nitrogen 14 mg/dL (9-20); Hemolysis Index 17
[2018-04-21 08:32] VITALS: BP 150/48
[2018-04-21] MEDS ORDERED: LASIX PO SCH (10:00)
[2018-04-21] MEDS: K-DUR PO SCH (10:44)
[2018-04-21] MEDS: ZESTRIL PO SCH (10:44)
[2018-04-21] MEDS: COREG PO SCH (10:44)
[2018-04-21] MEDS: ECOTRIN PO SCH (10:44)
[2018-04-21] MEDS: SODIUM CHLORIDE FLUSH SYRINGE 10 ML IV SCH (10:46)
--- NOTE | 2018-04-21 15:56 | Progress Note ---
Assessment and Plan Medical management. Would eventually need cardiac work up at a tertiary care centre. - Patient Problems (1) Acute on chronic heart failure with preserved ejection fraction Current Visit: Yes Status: Acute (2) Hypertension Current Visit: Yes Status: Chronic Qualifiers: Hypertension type: essential hypertension Qualified Code(s): I10 - Essential (primary) hypertension (3) Leg edema Current Visit: Yes Status: Chronic (4) SOB (shortness of breath) Current Visit: Yes Status: Chronic (5) Sinus node dysfunction Current Visit: Yes Status: Acute (6) Morbid obesity Current Visit: Yes Status: Chronic (7) Suspected sleep apnea Current Visit: Yes Status: Chronic (8) Strain, lumbosacral, chronic or old Current Visit: No Status: Chronic Subjective Date of service: 04/21/18 Principal diagnosis: Acute on chronic HFpEF, CP, HTNsive urgency, Suspected NICHOLAS, Pauses Objective Vital Signs Temp Pulse Resp BP BP Pulse Ox 04/21/18 10:41 94 04/21/18 08:28 97.7 F 74 18 150/48 92 04/21/18 04:41 98.1 F 70 18 141/68 94 04/21/18 01:00 65 04/21/18 00:18 98.1 F 68 18 130/76 91 04/20/18 21:03 92 04/20/18 19:43 98.3 F 79 18 136/71 96 04/20/18 16:43 979 F H 71 20 135/51 95 - Physical Examination General: No Apparent Distress, Other (Morbidly obese) HEENT: Positive: EOMI, Normocephaly, Mucus Membranes Moist Neck: Positive: neck supple, trachea midline, JVD/HJR (elevated) Cardiac: Positive: Reg Rate and Rhythm Lungs: Positive: clear to auscultation Neuro: Positive: Grossly Intact Abdomen: Positive: Soft, Active Bowel Sounds. Negative: Tender Skin: Positive: Clear. Negative: Rash Musculoskeletal: Normal Range of Motion Extremities: Present: edema (Trace leg edema), Other (Dry scaly skin - chronic skin changes.) - Labs and Meds Comprehensive Metabolic Panel 04/21/18 Range/Units 05:00 Sodium 138 (137-145) mmol/L Potassium 4.4 (3.6-5.0) mmol/L Chloride 95.3 L (98-107) mmol/L Carbon Dioxide 34 H (22-30) mmol/L BUN 14 (9-20) mg/dL Creatinine 0.9 (0.8-1.5) mg/dL Glucose 152 H (75-100) mg/dL Calcium 9.0 (8.4-10.2) mg/dL - Imaging and Cardiology EKG: report reviewed, image reviewed - Telemetry EKG Rhythm: Sinus Rhythm - EKG Sinus rhythms and dysrhythmias: sinus rhythm QRS axis and voltage: low voltage Myocardial infarction: septal [place] (old age or ind Pacemaker: ventricular pacing w/capt
--- NOTE | 2018-04-21 16:20 | Discharge Summary ---
Providers - Providers Date of Admission: 04/18/18 07:43 Date of discharge: 04/21/18 Attending physician: TEMITOPE VERA 04/18/18 Consult to Cardiac Rehabilitation [CONS] Routine Reason For Exam: Phase I 04/18/18 08:09 Consult to Physician [CONS] Routine Comment: Consulting Provider: ASTON SAWANT Physician Instructions: Reason For Exam: chest pain 04/19/18 16:05 Occupational Therapy Evaluate and Treat [CONS] Routine Comment: Reason For Exam: gen weakness Physical Therapy Evaluation and Treat [CONS] Routine Comment: Reason For Exam: gen weakness Hospitalization Reason for admission: SOB Condition: Critical Pertinent studies: CXR: cardiomegaly LE venous doppler: no DVT 2d echo: preserved EF Hospital course: Brief History; Patient is a 47 year old male with hx of DM, HTN, CHF, Morbid obesity Presenting to the ED with complaint of worsening chest pain rated a 8/10 in intensity and associated shortness of breath, worsening lower ext edema. Although he reports compliance with medication he reports non compliance with salt and water intake. He was admitted with Chest pain and CHF Protocol. Echo done showed EF 50% trace MR, mod LVH, impaired relaxation, RV mild to mod dilated. He was unable to undergo stress testing due to weight limitations. He was Recommended outpatient Vascular eval and cardiac evel at tertiary center. He was placed on ASA, LASIX IV, BB, Insulin and accu checks. Monitored Renal function. Cardiology recommend tele monitoring, evaluated home O2 eval prior to discharge. Weight loss and NICHOLAS work up strongly recommended and counselling provided, patient verbalized understanding. He was then discharged home in stable condition after cardiology clearance. Discharge diagnosis: Chest pain- LIKELY COSTOCHONDRITIS Hypertensive urgency Acute on Chronic HEART FAILURE with preserved EF and possible diastolic dysfuction Morbid Obesity with possible Underlying Sleep Apnea ?Underlying Pulmonary Hypertension. Diabetes Mellitus with hyperglycemia Leukocytosis, reactive, monitored for fever Hospitalist Physical General appearance: No distress. currently on oxygen, morbidly obese HEENT: EOMI, Normocephaly, Mucus Membranes Moist Neck: neck supple, trachea midline, no JVD Cardiac: Reg Rate and Rhythm, S1/S2 Lungs: clear to auscultation Neuro: Grossly Intact Abdomen: Soft, Active Bowel Sounds. Negative: Tender Skin:Clear. Negative: Rash Musculoskeletal: Normal Range of Motion Extremities: Present: trace Edema Disposition: DC/TX-06 HOME UNDER HOME HLTH Time spent for discharge: 34 minutes Core Measure Documentation - Palliative Care Palliative Care/ Comfort Measures: Not Applicable - Core Measures Any of the following diagnoses?: heart failure - Heart Failure Discharge Requirements [place]/ARB for LVSD if EF <40%: Yes Beta felisha at discharge: Yes Exam - Constitutional Vitals: Temp Pulse Resp BP Pulse Ox 97.7 F 74 18 150/48 94 04/21/18 08:28 04/21/18 08:28 04/21/18 08:28 04/21/18 08:04/21/18 10:41 Plan Activity: advance as tolerated Weight Bearing Status: Weight Bear as Tolerated Diet: low fat, low salt Additional Instructions: Outpt sleep study, outpt stress test at tertiary center Follow up with: [facility] [Other] - 7 Days Prescriptions: AtorvaSTATin [Lipitor] 40 mg PO QHS #30 tablet Carvedilol [Coreg] 6.25 mg PO BID #30 tablet Potassium Chloride [K-Dur] 10 meq PO QDAY #30 tablet Furosemide [Lasix TAB] 40 mg PO QDAY #30 tablet Lisinopril [Zestril TAB] 20 mg PO BID #60 tablet
--- NOTE | 2018-04-21 16:31 | Progress Note ---
Subjective Principal diagnosis: Acute on chronic HFpEF, CP, HTNsive urgency, Suspected NICHOLAS, Pauses Objective - Constitutional Vitals: Vital Signs - 12hr 04/21/18 04/21/18 04/21/18 04:41 08:28 10:41 Temperature 98.1 F 97.7 F Pulse Rate 70 74 Respiratory 18 18 Rate Blood Pressure 141/68 150/48 O2 Sat by Pulse 94 92 94 Oximetry - Labs CBC & Chem 7: 04/19/18 05:13 04/21/18 05:00 Labs: Abnormal lab results 04/21/18 Range/Units 05:00 Chloride 95.3 L (98-107) mmol/L Carbon Dioxide 34 H (22-30) mmol/L Glucose 152 H (75-100) mg/dL
== END 2018-04-21 18:49 | disposition home health service (06) | DRG 205 ==
LOC: ED 03:34 → 4A 07:43
PROVIDERS: ADMIT Internal Medicine; ATTEND Internal Medicine
DX: M94.0 Chondrocostal junction syndrome [Tietze] (principal); I50.23 Acute on chronic systolic (congestive) heart failure; Z68.44 Body mass index [BMI] 60.0-69.9, adult; I16.0 Hypertensive urgency; E66.01 Morbid (severe) obesity due to excess calories; E11.65 Type 2 diabetes mellitus with hyperglycemia; I11.0 Hypertensive heart disease with heart failure; G47.30 Sleep apnea, unspecified; I27.20 Pulmonary hypertension, unspecified; D72.828 Other elevated white blood cell count; I49.5 Sick sinus syndrome; Z82.49 Family history of ischemic heart disease and other diseases of the circulatory system; Z79.82 Long term (current) use of aspirin; Z79.899 Other long term (current) drug therapy
CPT/HCPCS: 36415; 71045; 80048; 80053; 80061; 82550; 82553; 82962; 83880; 84439; 84443; 84484; 85025; 93005; 93010; 93306; 93970; 94760; G0378; A9270-GY; J0360; J1940; J2270

== ENCOUNTER 2019-02-11 10:00 | Inpatient (IN) | payer MEDICARE ==
--- NOTE | 2019-02-11 10:22 | Event Note ---
ED Screening Note ED Screening Note: left sided CP that began a week ago has throbbing pain in the left arm +SOB couple steps worsens states he has edema present in the bilateral legs takes bumex twice a day denies missing doses denies any testicular edema PMHx CHF, sleep apnea, HTN, pre diabetes no CA, no stents wears oxygen at home 2L This initial assessment/diagnostic orders/clinical plan/treatment(s) is/are subject to change based on patients health status, clinical progression and re- assessment by fellow clinical providers in the ED. Further treatment and workup at subsequent clinical providers discretion. Patient/guardian urged not to elope from the ED as their condition may be serious if not clinically assessed and man aged. Initial orders include: CP protocol
--- NOTE | 2019-02-11 10:52 | XRay Report ---
CHEST 2 VIEWS INDICATION / CLINICAL INFORMATION: SOB, CP, hx of CHF. COMPARISON: 04/18/2018 FINDINGS: SUPPORT DEVICES: None. HEART / MEDIASTINUM: Moderate cardiomegaly with pulmonary venous hypertension. LUNGS / PLEURA: No significant pulmonary or pleural abnormality. No pneumothorax. ADDITIONAL FINDINGS: No significant additional findings. IMPRESSION: 1. Stable cardiomegaly and pulmonary venous hypertension. Signer Name: Rudy Dubose MD Signed: 02/11/2019 10:47 AM Workstation Name: [id number]
[2019-02-11 10:53] LABS: Basophils # (Auto) 0.1 K/mm3 (0.0-0.1); Basophils % (Auto) 0.6 % (0.0-1.8); Eosinophils % (Auto) 0.3 % (0.0-4.3); Hematocrit 45.1 % (35.5-45.6); Hemoglobin 14.6 gm/dl (11.8-15.2); Lymphocytes # (Auto) 1.8 K/mm3 (1.2-5.4); Lymphocytes % (Auto) 17.4 % (13.4-35.0); Mean Corpuscular HGB Conc 32 % (32-34); Mean Corpuscular Volume 95 fl (84-94); Monocytes # (Auto) 0.6 K/mm3 (0.0-0.8); Monocytes % (Auto) 5.3 % (0.0-7.3); Platelet Count 185 K/mm3 (140-440); Red Blood Count 4.76 M/mm3 (3.65-5.03); Red Cell Distribution Width 14.3 % (13.2-15.2)
[2019-02-11] MEDS ORDERED: NITROGLYCERIN 0.4 MG TAB SUBL SL PRN (11:06)
[2019-02-11] MEDS ORDERED: FAMOTIDINE 20 MG/2 ML INJ IV ONE (11:06)
[2019-02-11] MEDS ORDERED: ACETAMINOPHEN 325 MG TAB PO ONE (11:06)
[2019-02-11] MEDS ORDERED: ASPIRIN 325 MG TAB PO ONE (11:06)
--- NOTE | 2019-02-11 11:07 | Emergency Department Report ---
ED General Adult HPI - General Chief complaint: Chest Pain Stated complaint: CHEST PAIN Time Seen by Provider: 02/11/19 10:18 Source: patient, RN notes reviewed, old records reviewed Mode of arrival: Ambulatory Limitations: No Limitations - History of Present Illness Initial comments: Primary care DrPhong: Mayito Past medical history: Morbid obesity, diabetes, hypertension, congestive heart failure, costochondritis, prior history of diastolic cardiac dysfunction, probable underlying sleep apnea, probable pulmonary hypertension The patient is a 48-year-old gentleman who is not known to this provider previously, presenting to the ER with 2 weeks of left-sided chest wall pain, left sided lateral shoulder pain, bilateral lower extremity swelling, and worsening shortness of breath. He is on 2 L of home oxygen. He endorses compliance with his medications. His chest wall pain is left-sided, moved to the left shoulder, is reproducible, and sometimes constant, and sometimes intermittent. It increases with palpation of range of motion. Decreases with rest. There is no trauma. He denies recent travel, hospitalizations and surgery. He mainly came to the ER today because his wanted him to get seen and evaluated. He reports bilateral lower extremity swelling up to his proximal thighs, which is new for him. He reports no hematemesis or bright red blood per rectum. He reports having had an outpatient sleep study, but he doesn't know the results of the study. -: Gradual Location: chest, left, right, lower extremity Radiation: other Quality: other Consistency: other Improves with: other Worsens with: other Associated Symptoms: other - Related Data Home Medications Medication Instructions Recorded Confirmed Last Taken Aspirin [Aspir-Low] 81 mg PO DAILY 04/18/18 04/18/18 Unknown metFORMIN [Glucophage] 500 mg PO DAILY 04/18/18 04/18/18 Unknown Previous Rx's Medication Instructions Recorded Last Taken Type AtorvaSTATin [Lipitor] 40 mg PO QHS #30 tablet 04/21/18 Unknown Rx Furosemide [Lasix TAB] 40 mg PO QDAY #30 tablet 04/21/18 Unknown Rx Potassium Chloride [K-Dur] 10 meq PO QDAY #30 tablet 04/21/18 Unknown Rx carvediloL [Coreg] 6.25 mg PO BID #30 tablet 04/21/18 Unknown Rx lisinopriL [Zestril TAB] 20 mg PO BID #60 tablet 04/21/18 Unknown Rx Allergies Allergy/AdvReac Type Severity Reaction Status Date / Time No Known Allergies Allergy Unverified 06/28/13 09:56 ED Review of Systems ROS: Stated complaint: CHEST PAIN Other details as noted in HPI Constitutional: malaise Eyes: denies: eye discharge ENT: congestion Respiratory: shortness of breath Cardiovascular: chest pain, edema Gastrointestinal: denies: nausea, vomiting, melena Genitourinary: denies: urgency, dysuria Musculoskeletal: arthralgia, myalgia Neurological: weakness Hematological/Lymphatic: denies: easy bleeding ED Past Medical Hx - Past Medical History Previous Medical History?: Yes Hx Hypertension: Yes Hx Diabetes: Yes Additional medical history: Obesity - Social History Smoking Status: Never Smoker - Medications Home Medications: Home Medications Medication Instructions Recorded Confirmed Last Taken Type Aspirin [Aspir-Low] 81 mg PO DAILY 04/18/18 04/18/18 Unknown History metFORMIN [Glucophage] 500 mg PO DAILY 04/18/18 04/18/18 Unknown History AtorvaSTATin [Lipitor] 40 mg PO QHS #30 tablet 04/21/18 Unknown Rx Furosemide [Lasix TAB] 40 mg PO QDAY #30 tablet 04/21/18 Unknown Rx Potassium Chloride [K-Dur] 10 meq PO QDAY #30 tablet 04/21/18 Unknown Rx carvediloL [Coreg] 6.25 mg PO BID #30 tablet 04/21/18 Unknown Rx lisinopriL [Zestril TAB] 20 mg PO BID #60 tablet 04/21/18 Unknown Rx ED Physical Exam - General Limitations: No Limitations General appearance: alert, obese - Head Head exam: Present: atraumatic, normocephalic - Eye Eye exam: Present: normal appearance, EOMI. Absent: nystagmus - ENT ENT exam: Present: normal exam, normal orophraynx, mucous membranes moist, normal external ear exam - Neck Neck exam: Present: normal inspection, full ROM. Absent: tenderness, meningismus - Respiratory Respiratory exam: Present: chest wall tenderness, decreased breath sounds. Absent: respiratory distress, wheezes, rales, rhonchi, stridor - Cardiovascular Cardiovascular Exam: Present: regular rate, normal rhythm, normal heart sounds. Absent: bradycardia, tachycardia, irregular rhythm, systolic murmur, diastolic murmur, rubs, gallop - GI/Abdominal GI/Abdominal exam: Present: soft. Absent: distended, tenderness, guarding, rebound, rigid, pulsatile mass - Rectal Rectal exam: Present: deferred - Extremities Exam Extremities exam: Present: normal inspection, full ROM, tenderness (there is reproducible left-sided anterior chest wall tenderness, and lateral before meals joint tenderness. There is no redness, pus or streaking), pedal edema (3+ edema in the bilateral lower extremities. Chronic venous stasis noted.), other (2+ pulses noted in the bilateral upper and lower extremities. The pelvis is stable. There is no long bony tenderness. The muscular compartments are soft. There is no redness, pus, streaking or erythema.). Absent: calf tenderness - Back Exam Back exam: Present: normal inspection, full ROM. Absent: tenderness, CVA tenderness (R), CVA tenderness (L), paraspinal tenderness, vertebral tenderness - Neurological Exam Neurological exam: Present: alert, normal gait, other (there is no facial droop. The tongue is midline. Extraocular movements are intact bilaterally. Speaking in full sentences. Hearing is grossly intact. 5 out of 5 strength bilateral upper and lower extremities. Sensation is intact to light touch bilateral upper and lower extremities.). Absent: motor sensory deficit - Psychiatric Psychiatric exam: Present: normal affect, normal mood - Skin Skin exam: Present: warm, dry, intact, normal color. Absent: rash ED Course Vital Signs 02/11/19 02/11/19 02/11/19 10:06 11:28 11:30 Temperature 97.7 F Pulse Rate 90 Respiratory 18 18 Rate Blood Pressure 182/74 O2 Sat by Pulse 82 L 94 97 Oximetry - Reevaluation(s) Reevaluation #1: 02/11/19 11:48 Differential diagnosis, including but not limited to: Dependent edema, lymphedema, DVT, congestive heart failure, pulmonary hypertension, pneumonia, costochondritis, AC joint sprain, strain, acute coronary syndrome Assessment and plan: 56-year-old gentleman with dependent edema, resolved hypoxia, arterial blood gas demonstrating borderline hypoxemic respiratory failure, compensated respiratory acidosis with metabolic compensation, likely experiencing financial expected progression of his underlying chronic medical issues. He still appears to be quite obese and he is not currently on CPAP. He'll be continued on oxygen, he will be given Lasix, aspirin and appropriate pain medication. Lower extremity DVT studies pending. The patient had a similar presentation in April 2018, and had negative lower extremity DVT study. He'll be admitted to the medical service for fluid overload. Hospital physician is paced to range of motion admission. Discussed plan of care with patient and family who verbalizes understanding and whom are amenable to this plan of care Reevaluation #2: 02/11/19 12:07 Dr Moe accepts to her service We will defer to the inpatient team to follow-up on DVT studies. Reevaluation #3: 02/11/19 13:12 Bilateral lower extremity DVT study is negative for acute disease. Patient remains in no acute distress at this time. Vital signs are reviewed and a ppreciated ED Medical Decision Making - Lab Data Result diagrams: 02/11/19 10:36 02/11/19 10:36 Vital Signs 02/11/19 02/11/19 10:06 11:28 Temperature 97.7 F Pulse Rate 90 Respiratory 18 Rate Blood Pressure 182/74 O2 Sat by Pulse 82 L 94 Oximetry Lab Results 02/11/19 02/11/19 02/11/19 Range/Units 10:36 10:36 10:36 WBC 10.5 (4.5-11.0) K/mm3 RBC 4.76 (3.65-5.03) M/mm3 Hgb 14.6 (11.8-15.2) gm/dl Hct 45.1 (35.5-45.6) % MCV 95 H (84-94) fl MCH 31 (28-32) pg MCHC 32 (32-34) % RDW 14.3 (13.2-15.2) % Plt Count 185 (140-440) K/mm3 Lymph % (Auto) 17.4 (13.4-35.0) % Hoke % (Auto) 5.3 (0.0-7.3) % Eos % (Auto) 0.3 (0.0-4.3) % Baso % (Auto) 0.6 (0.0-1.8) % Lymph # 1.8 (1.2-5.4) K/mm3 Hoke # 0.6 (0.0-0.8) K/mm3 Eos # 0.0 (0.0-0.4) K/mm3 Baso # 0.1 (0.0-0.1) K/mm3 Seg Neutrophils % 76.4 H (40.0-70.0) % Seg Neutrophils # 8.0 H (1.8-7.7) K/mm3 PT 13.9 (12.2-14.9) Sec. INR 1.06 (0.87-1.13) APTT 29.8 (24.2-36.6) Sec. POC ABG pH (7.35-7.45) POC ABG pCO2 (35-45) POC ABG pO2 (80-105) POC ABG HCO3 (22-26 mml/L) POC ABG Total CO2 (23-27mmol/L) POC ABG O2 Sat POC ABG Base Excess ((-2) - (+3)mmol/L) FiO2 % Sodium 140 (137-145) mmol/L Potassium 4.4 (3.6-5.0) mmol/L Chloride 94.2 L (98-107) mmol/L Carbon Dioxide 30 (22-30) mmol/L Anion Gap 20 mmol/L BUN 16 (9-20) mg/dL Creatinine 0.8 (0.8-1.5) mg/dL Estimated GFR > 60 ml/min BUN/Creatinine Ratio 20 % Glucose 277 H (75-100) mg/dL Calcium 9.4 (8.4-10.2) mg/dL Phosphorus 2.50 (2.5-4.5) mg/dL Magnesium 1.60 L (1.7-2.3) mg/dL Total Bilirubin 0.80 (0.1-1.2) mg/dL AST 10 (5-40) units/L ALT 10 (7-56) units/L Alkaline Phosphatase 66 (35-129) units/L Troponin T < 0.010 (0.00-0.029) ng/mL NT-Pro-B Natriuret Pep 60.68 (0-900) pg/mL Total Protein 8.1 (6.3-8.2) g/dL Albumin 3.7 L (3.9-5) g/dL Albumin/Globulin Ratio 0.8 % /07/26 Range/Units 11:35 WBC (4.5-11.0) K/mm3 RBC (3.65-5.03) M/mm3 Hgb (11.8-15.2) gm/dl Hct (35.5-45.6) % MCV (84-94) fl MCH (28-32) pg MCHC (32-34) % RDW (13.2-15.2) % Plt Count (140-440) K/mm3 Lymph % (Auto) (13.4-35.0) % Hoke % (Auto) (0.0-7.3) % Eos % (Auto) (0.0-4.3) % Baso % (Auto) (0.0-1.8) % Lymph # (1.2-5.4) K/mm3 Hoke # (0.0-0.8) K/mm3 Eos # (0.0-0.4) K/mm3 Baso # (0.0-0.1) K/mm3 Seg Neutrophils % (40.0-70.0) % Seg Neutrophils # (1.8-7.7) K/mm3 PT (12.2-14.9) Sec. INR (0.87-1.13) APTT (24.2-36.6) Sec. POC ABG pH 7.397 (7.35-7.45) POC ABG pCO2 62.7 H (35-45) POC ABG pO2 68 L (80-105) POC ABG HCO3 38.6 (22-26 mml/L) POC ABG Total CO2 40 (23-27mmol/L) POC ABG O2 Sat 92 POC ABG Base Excess 14 ((-2) - (+3)mmol/L) FiO2 28 % Sodium (137-145) mmol/L Potassium (3.6-5.0) mmol/L Chloride (98-107) mmol/L Carbon Dioxide (22-30) mmol/L Anion Gap mmol/L BUN (9-20) mg/dL Creatinine (0.8-1.5) mg/dL Estimated GFR ml/min BUN/Creatinine Ratio % Glucose (75-100) mg/dL Calcium (8.4-10.2) mg/dL Phosphorus (2.5-4.5) mg/dL Magnesium (1.7-2.3) mg/dL Total Bilirubin (0.1-1.2) mg/dL AST (5-40) units/L ALT (7-56) units/L Alkaline Phosphatase (35-129) units/L Troponin T (0.00-0.029) ng/mL NT-Pro-B Natriuret Pep (0-900) pg/mL Total Protein (6.3-8.2) g/dL Albumin (3.9-5) g/dL Albumin/Globulin Ratio % - EKG Data -: EKG Interpreted by Me EKG shows normal: sinus rhythm Rate: normal - EKG Data 02/11/19 11:51 The EKG today shows a sinus rhythm, 89 bpm, there is low voltage, there is poor R-wave progression, the QTC is prolonged, there is motion artifact. The EKG is abnormal, it is not consistent with STEMI. It is unchanged from prior EKG from April 2018. - Radiology Data Radiology results: pending, report reviewed X-ray the chest is negative for acute disease. Lower extremity DVT study: Critical care attestation.: If time is entered above; I have spent that time in minutes in the direct care of this critically ill patient, excluding procedure time. ED Disposition Clinical Impression: Morbid obesity, Suspected sleep apnea, Leg edema, SOB (shortness of breath), Hypertensive heart disease, Hypertensive urgency Disposition: -09 OP ADMIT IP TO THIS HOSP Is pt being admited?: Yes Condition: Good
[2019-02-11 11:09] LABS: INR 1.06 (0.87-1.13)
[2019-02-11 11:10] LABS: Partial Thromboplastin Time 29.8 Sec. (24.2-36.6)
[2019-02-11 11:26] LABS: Alanine Aminotransferase 10 units/L (7-56); Albumin 3.7 g/dL (3.9-5); BUN/Creatinine Ratio 20; Blood Urea Nitrogen 16 mg/dL (9-20); Calcium 9.4 mg/dL (8.4-10.2); Hemolysis Index 8
[2019-02-11] MEDS ORDERED: FUROSEMIDE 40 MG/4 ML INJ IV ONE (11:43)
[2019-02-11] MEDS ORDERED: MAGNESIUM OXIDE 400 MG TAB PO STA (11:46)
[2019-02-11] MEDS ORDERED: hydrALAZINE 20 MG/1 ML INJ IV ONE (11:52)
--- NOTE | 2019-02-11 12:54 | Vascular Lab Report ---
DUPLEX DOPPLER LOWER EXTREMITY VEINS, BILATERAL INDICATION: b/l lower ext swelling. TECHNIQUE: Duplex doppler imaging was performed through the veins of both lower extremities using venous giuseppe darrick and other maneuvers. COMPARISON: None available. FINDINGS: Right Common femoral vein: Negative. Right Superficial femoral vein: Negative. Right Popliteal vein: Negative. Right Calf veins: Negative. Left Common femoral vein: Negative. Left Superficial femoral vein: Negative. Left Popliteal vein: Negative. Left Calf veins: Negative. Additional findings: None. IMPRESSION: Negative for DVT. Signer Name: Nirav Weeks MD Signed: 02/11/2019 12:49 PM Workstation Name: [id number]
[2019-02-11] MEDS ORDERED: FUROSEMIDE 40 MG/4 ML INJ ONE (13:50)
[2019-02-11] MEDS ORDERED: ONDANSETRON 4 MG/2 ML INJ IV PRN (18:42)
[2019-02-11] MEDS ORDERED: DEXTROSE 50% IN WATER (25GM) 50 ML SYRINGE IV PRN (18:42)
--- NOTE | 2019-02-11 19:46 | Consultation ---
History of Present Illness Consult date: 02/11/19 Reason for consult: dyspnea, chest pain, obstructive sleep apnea History of present illness: pulmonary and critical care consultation Dr. SCHULZ thank you for asking us to participate in the care of this patient. Past medical history: Morbid obesity, diabetes, hypertension, congestive heart failure, costochondritis, prior history of diastolic cardiac dysfunction, probable underlying sleep apnea, probable pulmonary hypertension The patient is a 48-year-old gentleman , presenting to the ER with 2 weeks of left-sided chest wall pain, left sided lateral shoulder pain, bilateral lower extremity swelling, and worsening shortness of breath. He is on 2 L of home oxygen. He endorses compliance with his medications. His chest wall pain is left-sided, moved to the left shoulder, is reproducible, and sometimes constant, and sometimes intermittent. It increases with palpation of range of motion. Decreases with rest. There is no trauma. He denies recent travel, hospitalizations and surgery. He mainly came to the ER today because his wanted him to get seen and evaluated. He reports bilateral lower extremity swelling up to his proximal thighs, which is new for him. He reports no hematemesis or bright red blood per rectum. He reports having had an outpatient sleep study, but he doesn't know the results of the study. Patient presently on 3 litres O2. O2 saturation 90%. No acute respiratory distress. Patients chest xray reported stable cardiomegaly and pulmonary venous hypertension. Past History Past Medical History: hypertension, other (Sleep apnea.) Social history: denies: smoking, alcohol abuse, prescription drug abuse, IV drug use Medications and Allergies Allergies Allergy/AdvReac Type Severity Reaction Status Date / Time No Known Allergies Allergy Unverified 06/28/13 09:56 Home Medications Medication Instructions Recorded Confirmed Last Taken Type Aspirin [Aspir-Low] 81 mg PO DAILY 04/18/18 02/12/19 02/12/19 10:00 History metFORMIN [Glucophage] 500 mg PO DAILY 04/18/18 02/12/19 02/12/19 10:00 History AtorvaSTATin [Lipitor] 40 mg PO QHS #30 tablet 04/21/18 02/12/19 02/11/19 22:00 Rx Furosemide [Lasix TAB] 40 mg PO QDAY #30 tablet 04/21/18 02/12/19 02/12/19 06:00 Rx Potassium Chloride [K-Dur] 10 meq PO QDAY #30 tablet 04/21/18 02/12/19 02/12/19 10:00 Rx carvediloL [Coreg] 6.25 mg PO BID #30 tablet 04/21/18 02/12/19 02/12/19 10:00 Rx lisinopriL [Zestril TAB] 20 mg PO BID #60 tablet 04/21/18 02/12/19 02/11/19 22:00 Rx [place] 10-325 mg TAB 1 tab PO Q4HR PRN 02/12/19 02/12/19 Unknown History Active Meds: Active Medications Acetaminophen (Tylenol) 650 mg PO Q4H PRN PRN Reason: Pain MILD(1-3)/Fever >100.5/[facility] Aspirin (Halfprin Ec) 81 mg PO DAILY [facility] Atorvastatin Calcium (Lipitor) 40 mg PO QHS [facility] Carvedilol (Coreg) 6.25 mg PO BID [facility] Dextrose (D50w (25gm) Syringe) 50 ml IV Q30MIN PRN; Protocol PRN Reason: Hypoglycemia Enoxaparin Sodium (Enoxaparin) 40 mg SUB-Q QDAY@2200 [facility] Furosemide (Lasix) 40 mg IV BID@0600,1800 [facility] Lisinopril (Zestril) 20 mg PO BID [facility] Metformin HCl (Glucophage) 500 mg PO DAILY [facility] Nitroglycerin (Nitrostat) 0.4 mg SL .Q5MIN PRN PRN Reason: Chest Pain Last Admin: 02/11/19 14:06 Dose: 0.4 mg Documented by: Ondansetron HCl (Zofran) 4 mg IV Q8H PRN PRN Reason: Nausea And Vomiting Potassium Chloride (K-Dur) 10 meq PO QDAY [facility] Sodium Chloride (Sodium Chloride Flush Syringe 10 Ml) 10 ml IV PRN PRN PRN Reason: LINE FLUSH Review of Systems All systems: negative Physical Examination Vital signs: Vital Signs Temp Pulse Resp BP Pulse Ox 97.7 F 90 18 182/74 82 L 02/11/19 10:02/11/19 10:02/11/19 10:02/11/19 10:02/11/19 10:06 General appearance: no acute distress, alert Eyes: non-icteric ENT: oropharynx moist Neck: supple Effort: normal Ascultation: Bilateral: diminished breath sounds Cardiovascular: regular rate and rhythm Gastrointestinal: normoactive bowel sounds, soft, non-tender Integumentary: normal Extremities: no cyanosis, no edema Musculoskeletal: no deformities Gait: other (Unable to assess at this time.) normal mental status, non-focal exam, pupils equal and round, CN II-XII normal mood appropriate Results - Laboratory Findings CBC and BMP: 02/11/19 10:36 02/11/19 10:36 ABG POC ABG pH 7.397 (7.35-7.45) 02/11/19 11:35 POC ABG pCO2 62.7 (35-45) H 02/11/19 11:35 POC ABG pO2 68 (80-105) L 02/11/19 11:35 POC ABG HCO3 38.6 (22-26 mml/L) 02/11/19 11:35 POC ABG Total CO2 40 (23-27mmol/L) 02/11/19 11:35 POC ABG O2 Sat 92 02/11/19 11:35 PT/INR, D-dimer PT 13.9 Sec. (12.2-14.9) 02/11/19 10:36 INR 1.06 (0.87-1.13) 02/11/19 10:36 Abnormal lab findings: Abnormal Labs 02/11/19 02/11/19 02/11/19 10:36 10:36 11:35 MCV 95 H Seg Neutrophils % 76.4 H Seg Neutrophils # 8.0 H POC ABG pCO2 62.7 H POC ABG pO2 68 L Chloride 94.2 L Glucose 277 H Magnesium 1.60 L Albumin 3.7 L - Diagnostic Findings Chest x-ray: report reviewed (Reported stable cardiomegaly and pulmonary venous hypertension.), image reviewed Assessment and Plan Past medical history: Morbid obesity, diabetes, hypertension, congestive heart failure, costochondritis, prior history of diastolic cardiac dysfunction, probable underlying sleep apnea, probable pulmonary hypertension The patient is a 48-year-old gentleman , presenting to the ER with 2 weeks of left-sided chest wall pain, left sided lateral shoulder pain, bilateral lower extremity swelling, and worsening shortness of breath. He is on 2 L of home oxygen. He endorses compliance with his medications. His chest wall pain is left-sided, moved to the left shoulder, is reproducible, and sometimes constant, and sometimes intermittent. It increases with palpation of range of motion. Decreases with rest. There is no trauma. He denies recent travel, hospitalizations and surgery. He mainly came to the ER today because his wanted him to get seen and evaluated. He reports bilateral lower extremity swelling up to his proximal thighs, which is new for him. He reports no hematemesis or bright red blood per rectum. He reports having had an outpatient sleep study, but he doesn't know the results of the study. Patient presently on 3 litres O2. O2 saturation 90%. No acute respiratory distress. Patients chest xray reported stable cardiomegaly and pulmonary venous hypertension. - Patient Problems (1) Acute and chronic respiratory failure with hypercapnia Current Visit: Yes Status: Acute Plan to address problem: O2 3 litres via nasal canula. BIPAP 16/8, rate 16, FIO2 32% during night time and prn for during day time for shortness of breath and day time sleepiness. Albuterol/atrovent aerosol treatments q 6 hours. Continue S/C Lovenox. (2) Acute on chronic heart failure with preserved ejection fraction Current Visit: No Status: Acute Plan to address problem: Management as per cardiology. (3) Hypertensive heart disease Current Visit: Yes Status: Chronic Plan to address problem: Management as per primary care. (4) Morbid obesity Current Visit: Yes Status: Chronic Plan to address problem: Recommen to loose weight. (5) Suspected sleep apnea Current Visit: Yes Status: Chronic Plan to address problem: Sleep study results pending. 2. 3 litres via nasal canula. 3.BIPAP 16/8, rate 16, FIO2 32% during night time and prn for during day time for shortness of breath and day time sleepines. (6) Obesity hypoventilation syndrome Current Visit: Yes Status: Acute Plan to address problem: Sleep study results pending. 2. 3 litres via nasal canula. 3.BIPAP 16/8, rate 16, FIO2 32% during night time and prn for during day time for shortness of breath and day time sleepines. (7) Leg edema Current Visit: Yes Status: Chronic Plan to address problem: Duplex scan negative for DVT.
--- NOTE | 2019-02-11 20:59 | History and Physical Report ---
History of Present Illness Date of admission: 02/11/19 12:07 Chief complaint: Shortness of breath History of present illness: 48-year-old man with a history of diastolic CHF who presents to the hospital with shortness of breath, orthopnea and worsening lower extremity swelling. He states that the edema in his lower extremities was weeping clear fluid at some point. Symptoms worsened prompting to come to the hospital for evaluation. He denies chest pain. The patient states that he had a sleep study done 2 weeks ago, he was sent by [facility], he is yet to receive the results or a CPAP machine. Past Medical History: diabetes, hypertension, hyperlipidemia. denies: atrial fib, arrhythmia, CAD, DVT, PVD, stroke Past Surgical History: No surgical history Social history: lives with family, full code Family history: no significant family history Medications and Allergies Allergies Allergy/AdvReac Type Severity Reaction Status Date / Time No Known Allergies Allergy Unverified 06/28/13 09:56 Home Medications Medication Instructions Recorded Confirmed Last Taken Type Aspirin [Aspir-Low] 81 mg PO DAILY 04/18/18 04/18/18 Unknown History metFORMIN [Glucophage] 500 mg PO DAILY 04/18/18 04/18/18 Unknown History AtorvaSTATin [Lipitor] 40 mg PO QHS #30 tablet 04/21/18 Unknown Rx Furosemide [Lasix TAB] 40 mg PO QDAY #30 tablet 04/21/18 Unknown Rx Potassium Chloride [K-Dur] 10 meq PO QDAY #30 tablet 04/21/18 Unknown Rx carvediloL [Coreg] 6.25 mg PO BID #30 tablet 04/21/18 Unknown Rx lisinopriL [Zestril TAB] 20 mg PO BID #60 tablet 04/21/18 Unknown Rx Active Meds: Active Medications Acetaminophen (Tylenol) 650 mg PO Q4H PRN PRN Reason: Pain MILD(1-3)/Fever >100.5/[facility] Aspirin (Halfprin Ec) 81 mg PO DAILY [facility] Atorvastatin Calcium (Lipitor) 40 mg PO QHS [facility] Carvedilol (Coreg) 6.25 mg PO BID [facility] Dextrose (D50w (25gm) Syringe) 50 ml IV Q30MIN PRN; Protocol PRN Reason: Hypoglycemia Enoxaparin Sodium (Enoxaparin) 40 mg SUB-Q QDAY@2200 [facility] Furosemide (Lasix) 40 mg IV BID@0600,1800 [facility] Lisinopril (Zestril) 20 mg PO BID [facility] Metformin HCl (Glucophage) 500 mg PO DAILY [facility] Nitroglycerin (Nitrostat) 0.4 mg SL .Q5MIN PRN PRN Reason: Chest Pain Last Admin: 02/11/19 14:06 Dose: 0.4 mg Documented by: Ondansetron HCl (Zofran) 4 mg IV Q8H PRN PRN Reason: Nausea And Vomiting Potassium Chloride (K-Dur) 10 meq PO QDAY [facility] Sodium Chloride (Sodium Chloride Flush Syringe 10 Ml) 10 ml IV PRN PRN PRN Reason: LINE FLUSH Review of Systems All systems: negative (See HPI) Exam - Constitutional Vitals: Temp Pulse Resp BP Pulse Ox 97.8 F 70 20 124/66 90 02/11/19 19:49 02/11/19 19:49 02/11/19 19:49 02/11/19 19:49 02/11/19 19:49 General appearance: Present: mild distress, well-nourished, obese - EENT Eyes: Present: PERRL ENT: hearing intact, clear oral mucosa - Neck Neck: Present: supple, normal ROM - Respiratory Respiratory effort: normal Respiratory: bilateral: diminished, rales - Cardiovascular Heart Sounds: Present: S1 & S2. Absent: rub, click - Extremities Extremities: pulses symmetrical Extremity abnormal: edema, other (Chronic stasis skin changes) Peripheral Pulses: within normal limits - Abdominal General gastrointestinal: Present: soft, non-tender, non-distended, normal bowel sounds Male genitourinary: Present: normal - Integumentary Integumentary: Present: clear, warm, dry - Musculoskeletal Musculoskeletal: gait normal, strength equal bilaterally - Psychiatric Psychiatric: appropriate mood/affect, intact judgment & insight - Neurologic Neurologic: CNII-XII intact, moves all extremities Results - Labs CBC & Chem 7: 02/11/19 10:36 02/11/19 10:36 Labs: Laboratory Last Values WBC 10.5 K/mm3 (4.5-11.0) 02/11/19 10:36 RBC 4.76 M/mm3 (3.65-5.03) 02/11/19 10:36 Hgb 14.6 gm/dl (11.8-15.2) 02/11/19 10:36 Hct 45.1 % (35.5-45.6) 02/11/19 10:36 MCV 95 fl (84-94) H 02/11/19 10:36 MCH 31 pg (28-32) 02/11/19 10:36 MCHC 32 % (32-34) 02/11/19 10:36 RDW 14.3 % (13.2-15.2) 02/11/19 10:36 Plt Count 185 K/mm3 (140-440) 02/11/19 10:36 Lymph % (Auto) 17.4 % (13.4-35.0) 02/11/19 10:36 [place] % (Auto) 5.3 % (0.0-7.3) 02/11/19 10:36 Eos % (Auto) 0.3 % (0.0-4.3) 02/11/19 10:36 Baso % (Auto) 0.6 % (0.0-1.8) 02/11/19 10:36 Lymph # 1.8 K/mm3 (1.2-5.4) 02/11/19 10:36 [place] # 0.6 K/mm3 (0.0-0.8) 02/11/19 10:36 Eos # 0.0 K/mm3 (0.0-0.4) 02/11/19 10:36 Baso # 0.1 K/mm3 (0.0-0.1) 02/11/19 10:36 Seg Neutrophils % 76.4 % (40.0-70.0) H 02/11/19 10:36 Seg Neutrophils # 8.0 K/mm3 (1.8-7.7) H 02/11/19 10:36 PT 13.9 Sec. (12.2-14.9) 02/11/19 10:36 INR 1.06 (0.87-1.13) 02/11/19 10:36 APTT 29.8 Sec. (24.2-36.6) 02/11/19 10:36 POC ABG pH 7.397 (7.35-7.45) 02/11/19 11:35 POC ABG pCO2 62.7 (35-45) H 02/11/19 11:35 POC ABG pO2 68 (80-105) L 02/11/19 11:35 POC ABG HCO3 38.6 (22-26 mml/L) 02/11/19 11:35 POC ABG Total CO2 40 (23-27mmol/L) 02/11/19 11:35 POC ABG O2 Sat 92 02/11/19 11:35 POC ABG Base Excess 14 ((-2) - (+3)mmol/L) 02/11/19 11:35 FiO2 28 % 02/11/19 11:35 Sodium 140 mmol/L (137-145) 02/11/19 10:36 Potassium 4.4 mmol/L (3.6-5.0) 02/11/19 10:36 Chloride 94.2 mmol/L (98-107) L 02/11/19 10:36 Carbon Dioxide 30 mmol/L (22-30) 02/11/19 10:36 Anion Gap 20 mmol/L 02/11/19 10:36 BUN 16 mg/dL (9-20) 02/11/19 10:36 Creatinine 0.8 mg/dL (0.8-1.5) 02/11/19 10:36 Estimated GFR > 60 ml/min 02/11/19 10:36 BUN/Creatinine Ratio 20 % 02/11/19 10:36 Glucose 277 mg/dL (75-100) H 02/11/19 10:36 Calcium 9.4 mg/dL (8.4-10.2) 02/11/19 10:36 Phosphorus 2.50 mg/dL (2.5-4.5) 02/11/19 10:36 Magnesium 1.60 mg/dL (1.7-2.3) L 02/11/19 10:36 Total Bilirubin 0.80 mg/dL (0.1-1.2) 02/11/19 10:36 AST 10 units/L (5-40) 02/11/19 10:36 ALT 10 units/L (7-56) 02/11/19 10:36 Alkaline Phosphatase 66 units/L (35-129) 02/11/19 10:36 Total Creatine Kinase 94 units/L (55-170) 02/11/19 10:36 Troponin T < 0.010 ng/mL (0.00-0.029) 02/11/19 13:20 NT-Pro-B Natriuret Pep 60.68 pg/mL (0-900) 02/11/19 10:36 Total Protein 8.1 g/dL (6.3-8.2) 02/11/19 10:36 Albumin 3.7 g/dL (3.9-5) L 02/11/19 10:36 Albumin/Globulin Ratio 0.8 % 02/11/19 10:36 - Imaging and Cardiology Chest x-ray: image reviewed (No acute findings, there is pulmonary venous hypertension) Venous US: image reviewed (Lower extremity Dopplers negative for DVT) Assessment and Plan Assessment and plan: 48-year-old man who presents with shortness of breath and lower extremity swelling. Acute on chronic diastolic CHF -IV diuretics,, optimize cardiac meds Cardiology consult Obesity hypoventilation Pulmonology consults Acute hypoxic respiratory failure Continue oxygen supplements NICHOLAS CPAP at bedtime. Primary team to contact [facility] prior to discharge so the patient can have CPAP at home. Diabetes Consistent carbohydrate diet, sliding scale insulin, check A1c Hypomagnesemia; replete orally, recheck in a.m. Morbid obesity Preventative health counseling performed for 17 minutes Weight loss encouraged Dietitian consult DVT prophylaxis; Lovenox
[2019-02-11] MEDS: carvediloL 6.25 MG TAB PO SCH (22:34)
[2019-02-11] MEDS: ENOXAPARIN 40 MG/0.4 ML INJ SUB-Q SCH (22:34)
[2019-02-11] MEDS: LISINOPRIL 20 MG TAB PO SCH (22:35)
[2019-02-12] MEDS: ACETAMINOPHEN 325 MG TAB PO PRN ×3 (03:56→18:35)
[2019-02-12] MEDS: FUROSEMIDE 40 MG/4 ML INJ IV SCH ×3 (07:00→18:00)
[2019-02-12] MEDS: POTASSIUM CHLORIDE ER 10 MEQ TAB PO SCH (10:52)
[2019-02-12] MEDS: ASPIRIN EC 81 MG TAB PO SCH (10:52)
[2019-02-12] MEDS: metFORMIN 500 MG TAB PO SCH (10:52)
[2019-02-12] MEDS: carvediloL 6.25 MG TAB PO SCH ×2 (10:58→22:05)
[2019-02-12] MEDS: LISINOPRIL 20 MG TAB PO SCH ×2 (11:00→22:05)
--- NOTE | 2019-02-12 11:04 | Progress Note ---
Assessment and Plan Assessment and plan: 48-year-old man who presents with shortness of breath and lower extremity swelling. Acute on chronic diastolic CHF -IV diuretics,, optimize cardiac meds Cardiology consult Obesity hypoventilation Pulmonology consults Acute hypoxic respiratory failure Continue oxygen supplements NICHOLAS CPAP at bedtime. Primary team to contact [facility] care prior to discharge so the patient can have CPAP at home. Diabetes Consistent carbohydrate diet, sliding scale insulin, check A1c Hypomagnesemia; replete orally, recheck in a.m. Morbid obesity Preventative health counseling performed for 17 minutes Weight loss encouraged Dietitian consult [facility] Physical - Constitutional Vitals: Temp Pulse Resp BP Pulse Ox 98.2 F 66 18 130/45 94 02/12/19 09:53 02/12/19 11:00 02/12/19 09:53 02/12/19 11:00 02/12/19 09:53 General appearance: Present: mild distress, well-nourished, obese Results - Labs CBC & Chem 7: 02/11/19 10:36 02/11/19 10:36 Labs: Laboratory Last Values WBC 10.5 K/mm3 (4.5-11.0) 02/11/19 10:36 RBC 4.76 M/mm3 (3.65-5.03) 02/11/19 10:36 Hgb 14.6 gm/dl (11.8-15.2) 02/11/19 10:36 Hct 45.1 % (35.5-45.6) 02/11/19 10:36 MCV 95 fl (84-94) H 02/11/19 10:36 MCH 31 pg (28-32) 02/11/19 10:36 MCHC 32 % (32-34) 02/11/19 10:36 RDW 14.3 % (13.2-15.2) 02/11/19 10:36 Plt Count 185 K/mm3 (140-440) 02/11/19 10:36 Lymph % (Auto) 17.4 % (13.4-35.0) 02/11/19 10:36 [place] % (Auto) 5.3 % (0.0-7.3) 02/11/19 10:36 Eos % (Auto) 0.3 % (0.0-4.3) 02/11/19 10:36 Baso % (Auto) 0.6 % (0.0-1.8) 02/11/19 10:36 Lymph # 1.8 K/mm3 (1.2-5.4) 02/11/19 10:36 [place] # 0.6 K/mm3 (0.0-0.8) 02/11/19 10:36 Eos # 0.0 K/mm3 (0.0-0.4) 02/11/19 10:36 Baso # 0.1 K/mm3 (0.0-0.1) 02/11/19 10:36 Seg Neutrophils % 76.4 % (40.0-70.0) H 02/11/19 10:36 Seg Neutrophils # 8.0 K/mm3 (1.8-7.7) H 02/11/19 10:36 PT 13.9 Sec. (12.2-14.9) 02/11/19 10:36 INR 1.06 (0.87-1.13) 02/11/19 10:36 APTT 29.8 Sec. (24.2-36.6) 02/11/19 10:36 POC ABG pH 7.397 (7.35-7.45) 02/11/19 11:35 POC ABG pCO2 62.7 (35-45) H 02/11/19 11:35 POC ABG pO2 68 (80-105) L 02/11/19 11:35 POC ABG HCO3 38.6 (22-26 mml/L) 02/11/19 11:35 POC ABG Total CO2 40 (23-27mmol/L) 02/11/19 11:35 POC ABG O2 Sat 92 02/11/19 11:35 POC ABG Base Excess 14 ((-2) - (+3)mmol/L) 02/11/19 11:35 FiO2 28 % 02/11/19 11:35 Sodium 140 mmol/L (137-145) 02/11/19 10:36 Potassium 4.4 mmol/L (3.6-5.0) 02/11/19 10:36 Chloride 94.2 mmol/L (98-107) L 02/11/19 10:36 Carbon Dioxide 30 mmol/L (22-30) 02/11/19 10:36 Anion Gap 20 mmol/L 02/11/19 10:36 BUN 16 mg/dL (9-20) 02/11/19 10:36 Creatinine 0.8 mg/dL (0.8-1.5) 02/11/19 10:36 Estimated GFR > 60 ml/min 02/11/19 10:36 BUN/Creatinine Ratio 20 % 02/11/19 10:36 Glucose 277 mg/dL (75-100) H 02/11/19 10:36 POC Glucose 177 (70-105) H 02/11/19 21:15 Hemoglobin A1c 7.9 % (4-6) H 02/12/19 08:09 Calcium 9.4 mg/dL (8.4-10.2) 02/11/19 10:36 Phosphorus 2.50 mg/dL (2.5-4.5) 02/11/19 10:36 Magnesium 1.90 mg/dL (1.7-2.3) 02/12/19 08:09 Total Bilirubin 0.80 mg/dL (0.1-1.2) 02/11/19 10:36 AST 10 units/L (5-40) 02/11/19 10:36 ALT 10 units/L (7-56) 02/11/19 10:36 Alkaline Phosphatase 66 units/L (35-129) 02/11/19 10:36 Total Creatine Kinase 94 units/L (55-170) 02/11/19 10:36 Troponin T < 0.010 ng/mL (0.00-0.029) 02/11/19 13:20 NT-Pro-B Natriuret Pep 60.68 pg/mL (0-900) 02/11/19 10:36 Total Protein 8.1 g/dL (6.3-8.2) 02/11/19 10:36 Albumin 3.7 g/dL (3.9-5) L 02/11/19 10:36 Albumin/Globulin Ratio 0.8 % 02/11/19 10:36 Active Medications - Current Medications Current Medications: Generic Name Dose Route Start Last Admin Trade Name Freq PRN Reason Stop Dose Admin Acetaminophen 650 mg 02/11/19 18:42 02/12/19 08:01 Tylenol PO 650 mg Q4H PRN Administration Pain MILD(1-3)/Fever >100.5/[facility] Aspirin 81 mg 02/12/19 10:00 02/12/19 10:52 Halfprin Ec PO 81 mg DAILY [facility] Administration Atorvastatin Calcium 40 mg 02/11/19 22:00 02/11/19 22:35 Lipitor PO 40 mg QHS [facility] Administration Carvedilol 6.25 mg 02/11/19 22:00 02/12/19 10:58 Coreg PO 6.25 mg BID [facility] Administration Dextrose 50 ml 02/11/19 18:42 D50w (25gm) Syringe IV Q30MIN PRN Hypoglycemia Protocol Enoxaparin Sodium 40 mg 02/11/19 22:00 02/11/19 22:34 Enoxaparin SUB-Q 40 mg QDAY@2200 [facility] Administration Furosemide 40 mg 02/11/19 18:42 02/12/19 07:00 Lasix IV 40 mg BID@0600,1800 [facility] Administration Lisinopril 20 mg 02/11/19 22:00 02/12/19 11:00 Zestril PO Not Given BID [facility] Metformin HCl 500 mg 02/12/19 10:00 02/12/19 10:52 Glucophage PO 500 mg DAILY [facility] Administration Nitroglycerin 0.4 mg 02/11/19 11:06 02/11/19 14:06 Nitrostat SL 0.4 mg .Q5MIN PRN Administration Chest Pain Ondansetron HCl 4 mg 02/11/19 18:42 Zofran IV Q8H PRN Nausea And Vomiting Potassium Chloride 10 meq 02/12/19 10:00 02/12/19 10:52 K-Dur PO 10 meq QDAY [facility] Administration Sodium Chloride 10 ml 02/11/19 18:42 02/11/19 22:36 Sodium Chloride Flush Syringe 10 Ml IV 10 ml PRN PRN Administration LINE FLUSH
--- NOTE | 2019-02-12 13:24 | Consultation ---
History of Present Illness Consult date: 02/12/19 Requesting physician: KELSEY SCHULZ Consult reason: congestive heart failure History of present illness: The pt is a 48-year-old male with a past medical history of HFpEF, HTN, morbid obesity, NICHOLAS (noncompliant with CPAP), ? OHS, recurrent chest pain. He presented with c/o progressively worsening SOB, orthopnea and and BLE edema with BLE weeping for the past several days. He also reports some intermittent left-sided aching chest pain for the past several days which occurs both at rest and with exertion. Pt denies any palpitations, n/v, diaphoresis, dizziness or syncope. Of note, pt was seen here in 04/2018 for HFpEF and chest pain. We were unable to perform ischemic evaluation at that time due to body habitus. Echo done 04/2018 showed EF 50%, trace MR, mod LVH, impaired relaxation, RV mild to mod dilated. Past History Past Medical History: hypertension, other (Sleep apnea.) Social history: denies: smoking, alcohol abuse, prescription drug abuse, IV drug use Medications and Allergies Allergies Allergy/AdvReac Type Severity Reaction Status Date / Time No Known Allergies Allergy Unverified 06/28/13 09:56 Home Medications Medication Instructions Recorded Confirmed Last Taken Type Aspirin [Aspir-Low] 81 mg PO DAILY 04/18/18 02/12/19 02/12/19 10:00 History metFORMIN [Glucophage] 500 mg PO DAILY 04/18/18 02/12/19 02/12/19 10:00 History AtorvaSTATin [Lipitor] 40 mg PO QHS #30 tablet 04/21/18 02/12/19 02/11/19 22:00 Rx Furosemide [Lasix TAB] 40 mg PO QDAY #30 tablet 04/21/18 02/12/19 02/12/19 06:00 Rx Potassium Chloride [K-Dur] 10 meq PO QDAY #30 tablet 04/21/18 02/12/19 02/12/19 10:00 Rx carvediloL [Coreg] 6.25 mg PO BID #30 tablet 04/21/18 02/12/19 02/12/19 10:00 Rx lisinopriL [Zestril TAB] 20 mg PO BID #60 tablet 04/21/18 02/12/19 02/11/19 22:00 Rx [place] 10-325 mg TAB 1 tab PO Q4HR PRN 02/12/19 02/12/19 Unknown History Active Meds: Active Medications Acetaminophen (Tylenol) 650 mg PO Q4H PRN PRN Reason: Pain MILD(1-3)/Fever >100.5/MADERA Last Admin: 02/12/19 08:01 Dose: 650 mg Documented by: Aspirin (Halfprin Ec) 81 mg PO DAILY [facility] Last Admin: 02/12/19 10:52 Dose: 81 mg Documented by: Atorvastatin Calcium (Lipitor) 40 mg PO QHS [facility] Last Admin: 02/11/19 22:35 Dose: 40 mg Documented by: Carvedilol (Coreg) 6.25 mg PO BID [facility] Last Admin: 02/12/19 10:58 Dose: 6.25 mg Documented by: Dextrose (D50w (25gm) Syringe) 50 ml IV Q30MIN PRN; Protocol PRN Reason: Hypoglycemia Enoxaparin Sodium (Enoxaparin) 40 mg SUB-Q QDAY@2200 [facility] Last Admin: 02/11/19 22:34 Dose: 40 mg Documented by: Furosemide (Lasix) 40 mg IV BID@0600,1800 [facility] Last Admin: 02/12/19 07:00 Dose: 40 mg Documented by: Lisinopril (Zestril) 20 mg PO BID [facility] Last Admin: 02/12/19 11:00 Dose: Not Given Documented by: Metformin HCl (Glucophage) 500 mg PO DAILY [facility] Last Admin: 02/12/19 10:52 Dose: 500 mg Documented by: Nitroglycerin (Nitrostat) 0.4 mg SL .Q5MIN PRN PRN Reason: Chest Pain Last Admin: 02/11/19 14:06 Dose: 0.4 mg Documented by: Ondansetron HCl (Zofran) 4 mg IV Q8H PRN PRN Reason: Nausea And Vomiting Potassium Chloride (K-Dur) 10 meq PO QDAY [facility] Last Admin: 02/12/19 10:52 Dose: 10 meq Documented by: Sodium Chloride (Sodium Chloride Flush Syringe 10 Ml) 10 ml IV PRN PRN PRN Reason: LINE FLUSH Last Admin: 02/11/19 22:36 Dose: 10 ml Documented by: Review of Systems Constitutional: no fever, no chills, no sweats Ears, nose, mouth and throat: no ear pain, no nose pain, no sinus pressure, no sinus pain Cardiovascular: chest pain, orthopnea, edema, shortness of breath, dyspnea on exertion, paroxysmal nocturnal dyspnea, high blood pressure, leg edema, decreased exercise tolerance, no palpitations, no rapid/irregular heart beat, no syncope, no lightheadedness Respiratory: shortness of breath, dyspnea on exertion, no cough, no congestion, no wheezing, no pain on inspiration Gastrointestinal: no abdominal pain, no nausea, no vomiting, no diarrhea, no constipation, no change in bowel habits Genitourinary Male: no dysuria, no hematuria, no flank pain, no discharge, no urinary frequency, no urinary hesitancy Musculoskeletal: no neck stiffness, no neck pain, no shooting arm pain, no arm numbness/tingling, no low back pain, no shooting leg pain Integumentary: blisters (BLE), no rash, no pruritis, no redness Neurological: no head injury, no paralysis, no weakness, no parathesias, no numbness, no tingling, no seizures, no syncope Psychiatric: no anxiety Endocrine: no cold intolerance, no heat intolerance Hematologic/Lymphatic: no easy bruising, no easy bleeding Allergic/Immunologic: no urticaria, no wheezing Physical Examination Vital Signs Temp Pulse Resp BP Pulse Ox 97.7 F 90 18 182/74 82 L 02/11/19 10:06 02/11/19 10:06 02/11/19 10:06 02/11/19 10:06 02/11/19 10:06 General appearance: no acute distress HEENT: Positive: PERRL, Normocephaly, Mucus Membranes Moist Neck: Positive: neck supple, trachea midline Cardiac: Positive: Reg Rate and Rhythm, S1/S2 Lungs: Positive: Decreased Breath Sounds Neuro: Positive: Grossly Intact Abdomen: Negative: Tender Skin: Positive: Other (BLE blistering and weeping with serous fluid). Negative: Rash Musculoskeletal: No Pain Extremities: Present: +2 Edema (BLE into thighs) Results 02/11/19 10:36 02/11/19 10:36 - Imaging and Cardiology Echo: report reviewed (04/2018: EF 50%, trace MR, mod LVH, impaired relaxation, RV mild to mod dilated. ) EKG: report reviewed, image reviewed EKG interpretations - Telemetry EKG Rhythm: Sinus Rhythm - EKG Sinus rhythms and dysrhythmias: sinus rhythm Assessment and Plan Agree with present cardiac management. AMI ruled out. Pt reports his last weight was approx 490lbs. Unfortunately, his body habitus continues to preclude ischemic evaluation at this point. Can consider OP ischemic evaluation at another facility. The patient has been seen in conjunction with Dr. Gil who agrees with the assessment and plan of care. - Patient Problems (1) Acute heart failure with preserved ejection fraction Current Visit: Yes Status: Acute (2) Chest pain Current Visit: Yes Status: Acute Qualifiers: Qualified Code(s): R07.9 - Chest pain, unspecified (3) Hypertension Current Visit: Yes Status: Chronic Qualifiers: Hypertension type: essential hypertension Qualified Code(s): I10 - Essential (primary) hypertension (4) Sleep apnea Current Visit: Yes Status: Chronic (5) Morbid obesity Current Visit: Yes Status: Chronic
--- NOTE | 2019-02-12 19:49 | Progress Note ---
Assessment and Plan Patient is 48yo male w/ Hx of CHF, HTN, diabetes, morbid obesity, underlying sleep apnea, probable pulmonary hypertension presenting with left-sided chest wall pain, left sided lateral shoulder pain, bilateral lower extremity swelling, and worsening shortness of breath. He is on 2 L of home oxygen. Patient is currently on 2.5 liters via nasal canula with O2 saturation of 94%. BIPAP on standby. No acute respiratory distress. Denies history of smoking. Patients chest xray reported stable cardiomegaly and pulmonary venous hypertension. - Patient Problems (1) Acute and chronic respiratory failure with hypercapnia Current Visit: Yes Status: Acute Plan to address problem: O2 2.5 litres via nasal canula. BIPAP 16/8, rate 16, FIO2 32% during night time and prn for during day time for shortness of breath and day time sleepiness. Albuterol/atrovent aerosol treatments q 6 hours. Continue S/C Lovenox. (2) Acute on chronic heart failure with preserved ejection fraction Current Visit: No Status: Acute Plan to address problem: Management as per cardiology. (3) Hypertensive heart disease Current Visit: Yes Status: Chronic Plan to address problem: Management as per primary care. (4) Morbid obesity Current Visit: Yes Status: Chronic Plan to address problem: Recommend to lose weight. (5) Suspected sleep apnea Current Visit: Yes Status: Chronic Plan to address problem: Sleep study results pending. 2.5 litres via nasal canula. BIPAP 16/8, rate 16, FIO2 32% during night time and prn for during day time for shortness of breath and day time sleepines. (6) Obesity hypoventilation syndrome Current Visit: Yes Status: Acute Plan to address problem: Sleep study results pending. 2.5 litres via nasal canula. BIPAP 16/8, rate 16, FIO2 32% during night time and prn for during day time for shortness of breath and day time sleepines. (7) Leg edema Current Visit: Yes Status: Chronic Plan to address problem: Duplex scan negative for DVT. Subjective Date of service: 02/12/19 Interval history: Patient is 48yo male w/ Hx of CHF, HTN, diabetes, morbid obesity, underlying sleep apnea, probable pulmonary hypertension presenting with left-sided chest wall pain, left sided lateral shoulder pain, bilateral lower extremity swelling, and worsening shortness of breath. He is on 2 L of home oxygen. Patient is currently on 2.5 liters via nasal canula with O2 saturation of 94%. BIPAP on standby. No acute respiratory distress. Denies history of smoking. Patients chest xray reported stable cardiomegaly and pulmonary venous hypertension. Objective Vital Signs - 12hr 02/12/19 02/12/19 02/12/19 09:01 09:16 09:53 Temperature 98.2 F Pulse Rate 71 Respiratory 20 18 Rate Respiratory Rate [Chest] Blood Pressure 108/41 O2 Sat by Pulse 97 94 Oximetry 02/12/19 02/12/19 02/12/19 10:00 10:58 11:00 Temperature Pulse Rate 60 66 66 Respiratory Rate Respiratory Rate [Chest] Blood Pressure 130/45 130/45 O2 Sat by Pulse Oximetry 02/12/19 02/12/19 02/12/19 11:56 17:00 18:35 Temperature Pulse Rate 66 Respiratory 20 20 Rate Respiratory 20 Rate [Chest] Blood Pressure 130/45 O2 Sat by Pulse 95 94 Oximetry Constitutional: no acute distress, alert Eyes: non-icteric ENT: oropharynx moist Neck: supple Effort: normal Ascultation: Bilateral: diminished breath sounds Cardiovascular: regular rate and rhythm Gastrointestinal: normoactive bowel sounds, soft, non-tender Integumentary: normal Extremities: no cyanosis, no edema Neurologic: normal mental status, non-focal exam, pupils equal and round, CN II- XII normal Psychiatric: mood appropriate CBC and BMP: 02/11/19 10:36 02/11/19 10:36 ABG, PT/INR, D-dimer: ABG POC ABG pH 7.397 (7.35-7.45) 02/11/19 11:35 POC ABG pCO2 62.7 (35-45) H 02/11/19 11:35 POC ABG pO2 68 (80-105) L 02/11/19 11:35 POC ABG HCO3 38.6 (22-26 mml/L) 02/11/19 11:35 POC ABG Total CO2 40 (23-27mmol/L) 02/11/19 11:35 POC ABG O2 Sat 92 02/11/19 11:35 PT/INR, D-dimer PT 13.9 Sec. (12.2-14.9) 02/11/19 10:36 INR 1.06 (0.87-1.13) 02/11/19 10:36 Abnormal lab findings: Abnormal Labs 02/11/19 02/11/19 02/11/19 10:36 10:36 11:35 MCV 95 H Seg Neutrophils % 76.4 H Seg Neutrophils # 8.0 H POC ABG pCO2 62.7 H POC ABG pO2 68 L Chloride 94.2 L Glucose 277 H POC Glucose Hemoglobin A1c Magnesium 1.60 L Albumin 3.7 L 02/11/19 02/12/19 21:15 08:09 MCV Seg Neutrophils % Seg Neutrophils # POC ABG pCO2 POC ABG pO2 Chloride Glucose POC Glucose 177 H Hemoglobin A1c 7.9 H Magnesium Albumin
[2019-02-12] MEDS: ENOXAPARIN 40 MG/0.4 ML INJ SUB-Q SCH (22:04)
[2019-02-13] MEDS: FUROSEMIDE 40 MG/4 ML INJ IV SCH ×2 (05:10→18:36)
[2019-02-13 08:50] LABS: BUN/Creatinine Ratio 17; Blood Urea Nitrogen 12 mg/dL (9-20); Calcium 9.5 mg/dL (8.4-10.2); Hemolysis Index 19
[2019-02-13] MEDS: ASPIRIN EC 81 MG TAB PO SCH (10:59)
[2019-02-13] MEDS: POTASSIUM CHLORIDE ER 10 MEQ TAB PO SCH (10:59)
[2019-02-13] MEDS: carvediloL 6.25 MG TAB PO SCH (10:59)
[2019-02-13] MEDS: metFORMIN 500 MG TAB PO SCH (11:00)
[2019-02-13] MEDS: LISINOPRIL 20 MG TAB PO SCH ×2 (11:00→21:08)
--- NOTE | 2019-02-13 12:36 | Progress Note ---
Assessment and Plan atient is 48yo male w/ Hx of CHF, HTN, diabetes, morbid obesity, underlying sleep apnea, probable pulmonary hypertension presenting with left-sided chest wall pain, left sided lateral shoulder pain, bilateral lower extremity swelling, and worsening shortness of breath. He is on 2 L of home oxygen. Patient is currently on 2.5 liters via nasal canula with O2 saturation of 93%. BIPAP on standby. No acute respiratory distress. Denies history of smoking. Patients chest xray reported stable cardiomegaly and pulmonary venous hypertension. Patient said he is feeling some what better to day. Patient said he already has sleep study some place in [place], recommend to follow with them on sleep problems.. - Patient Problems (1) Acute and chronic respiratory failure with hypercapnia Current Visit: Yes Status: Acute Plan to address problem: O2 2.5 litres via nasal canula. BIPAP 16/8, rate 16, FIO2 32% during night time and prn for during day time for shortness of breath and day time sleepiness. Albuterol/atrovent aerosol treatments q 6 hours. Continue S/C Lovenox. (2) Acute on chronic heart failure with preserved ejection fraction Current Visit: No Status: Acute Plan to address problem: Management as per cardiology. (3) Hypertensive heart disease Current Visit: Yes Status: Chronic Plan to address problem: Management as per primary care. (4) Morbid obesity Current Visit: Yes Status: Chronic Plan to address problem: Recommend to lose weight. (5) Suspected sleep apnea Current Visit: Yes Status: Chronic Plan to address problem: Sleep study results pending. 2.5 litres via nasal canula. BIPAP 16/8, rate 16, FIO2 32% during night time and prn for during day time for shortness of breath and day time sleepines. (6) Obesity hypoventilation syndrome Current Visit: Yes Status: Acute Plan to address problem: Sleep study results pending. 2.5 litres via nasal canula. BIPAP 16/8, rate 16, FIO2 32% during night time and prn for during day time for shortness of breath and day time sleepines. (7) Leg edema Current Visit: Yes Status: Chronic Plan to address problem: Duplex scan negative for DVT. Subjective Date of service: 02/13/19 Interval history: Patient is 48yo male w/ Hx of CHF, HTN, diabetes, morbid obesity, underlying sleep apnea, probable pulmonary hypertension presenting with left-sided chest wall pain, left sided lateral shoulder pain, bilateral lower extremity swelling, and worsening shortness of breath. He is on 2 L of home oxygen. Patient is currently on 2.5 liters via nasal canula with O2 saturation of 93%. BIPAP on standby. No acute respiratory distress. Denies history of smoking. Patients chest xray reported stable cardiomegaly and pulmonary venous hypertension. Patient said he is feeling some what better to day. Patient said he already has sleep study some place in [place], recommend to follow with them on sleep problems. Objective Vital Signs - 12hr 02/13/19 02/13/19 02/13/19 03:09 04:35 07:42 Temperature 97.9 F Pulse Rate 67 Respiratory 24 Rate Blood Pressure 145/84 103/34 O2 Sat by Pulse 87 90 81 L Oximetry 02/13/19 02/13/19 02/13/19 09:40 10:00 10:57 Temperature 98.4 F Pulse Rate 71 72 Respiratory 20 Rate Blood Pressure 147/93 O2 Sat by Pulse 96 94 Oximetry 02/13/19 02/13/19 10:59 11:00 Temperature Pulse Rate 72 72 Respiratory Rate Blood Pressure 147/93 147/93 O2 Sat by Pulse Oximetry Constitutional: no acute distress, alert, other (Morbidly Obese.) Eyes: non-icteric ENT: oropharynx moist Neck: supple Effort: normal Ascultation: Bilateral: diminished breath sounds Cardiovascular: regular rate and rhythm Gastrointestinal: normoactive bowel sounds, soft, non-tender Integumentary: normal Extremities: no cyanosis, no edema Neurologic: normal mental status, non-focal exam, pupils equal and round, CN II-XII normal Psychiatric: mood appropriate CBC and BMP: 02/11/19 10:36 02/13/19 07:52 ABG, PT/INR, D-dimer: ABG POC ABG pH 7.397 (7.35-7.45) 02/11/19 11:35 POC ABG pCO2 62.7 (35-45) H 02/11/19 11:35 POC ABG pO2 68 (80-105) L 02/11/19 11:35 POC ABG HCO3 38.6 (22-26 mml/L) 02/11/19 11:35 POC ABG Total CO2 40 (23-27mmol/L) 02/11/19 11:35 POC ABG O2 Sat 92 02/11/19 11:35 PT/INR, D-dimer PT 13.9 Sec. (12.2-14.9) 02/11/19 10:36 INR 1.06 (0.87-1.13) 02/11/19 10:36 Abnormal lab findings: Abnormal Labs 02/11/19 02/11/19 02/11/19 10:36 10:36 11:35 MCV 95 H Seg Neutrophils % 76.4 H Seg Neutrophils # 8.0 H POC ABG pCO2 62.7 H POC ABG pO2 68 L Chloride 94.2 L Carbon Dioxide Creatinine Glucose 277 H POC Glucose Hemoglobin A1c Magnesium 1.60 L Albumin 3.7 L 02/11/19 02/12/19 02/12/19 21:15 08:09 21:44 MCV Seg Neutrophils % Seg Neutrophils # POC ABG pCO2 POC ABG pO2 Chloride Carbon Dioxide Creatinine Glucose POC Glucose 177 H 170 H Hemoglobin A1c 7.9 H Magnesium Albumin 02/13/19 02/13/19 07:52 07:54 MCV Seg Neutrophils % Seg Neutrophils # POC ABG pCO2 POC ABG pO2 Chloride 96.5 L Carbon Dioxide 31 H Creatinine 0.7 L Glucose 169 H POC Glucose 162 H Hemoglobin A1c Magnesium Albumin
--- NOTE | 2019-02-13 12:43 | Progress Note ---
Assessment and Plan D/c BB in setting of sinus bradycardia with 2sec pause noted overnight, suspect bradyarrhythmia r/t NICHOLAS. Add zaroxolyn, cont IV lasix BID. AMI ruled out, chest pain currently resolved. Pt reports his last weight was approx 490lbs. Unfortunately, his body habitus continues to preclude ischemic evaluation at this point. Can consider OP ischemic evaluation at another facility. The patient has been seen in conjunction with Dr. Gil who agrees with the assessment and plan of care. - Patient Problems (1) Acute heart failure with preserved ejection fraction Current Visit: Yes Status: Acute (2) Chest pain Current Visit: Yes Status: Resolved Qualifiers: Qualified Code(s): R07.9 - Chest pain, unspecified (3) Hypertension Current Visit: Yes Status: Chronic Qualifiers: Hypertension type: essential hypertension Qualified Code(s): I10 - Essential (primary) hypertension (4) Sleep apnea Current Visit: Yes Status: Chronic (5) Morbid obesity Current Visit: Yes Status: Chronic Subjective Date of service: 02/13/19 Principal diagnosis: hf Interval history: pt resting in bed, reports resolution of chest pain, states SOB and BLE edema improving. in sr on tele with SB noted overnight, 2 sec pause noted while sleeping. Objective Last Vital Signs Temp 98.4 F 02/13/19 10:57 Pulse 72 02/13/19 11:00 Resp 20 02/13/19 10:57 BP 147/93 02/13/19 11:00 Pulse Ox 94 02/13/19 10:57 - Physical Examination General: No Apparent Distress HEENT: Positive: PERRL, Normocephaly, Mucus Membranes Moist Neck: Positive: neck supple, trachea midline Cardiac: Positive: Reg Rate and Rhythm, S1/S2 Lungs: Positive: Decreased Breath Sounds Neuro: Positive: Grossly Intact Abdomen: Negative: Tender Skin: Positive: Other (BLE blistering and weeping with serous fluid). Negative: Rash Musculoskeletal: No Pain Extremities: Present: +2 Edema (BLE into thighs) - Labs and Meds Comprehensive Metabolic Panel 02/13/19 Range/Units 07:52 Sodium 141 (137-145) mmol/L Potassium 4.4 (3.6-5.0) mmol/L Chloride 96.5 L (98-107) mmol/L Carbon Dioxide 31 H (22-30) mmol/L BUN 12 (9-20) mg/dL Creatinine 0.7 L (0.8-1.5) mg/dL Glucose 169 H (75-100) mg/dL Calcium 9.5 (8.4-10.2) mg/dL - Imaging and Cardiology EKG: report reviewed, image reviewed Echo: report reviewed (04/2018: EF 50%, trace MR, mod LVH, impaired relaxation, RV mild to mod dilated. ) - EKG Sinus rhythms and dysrhythmias: sinus rhythm
--- NOTE | 2019-02-13 16:29 | Progress Note ---
Assessment and Plan - Patient Problems (1) Acute and chronic respiratory failure Current Visit: Yes Status: Acute Qualifiers: Respiratory failure complication: hypoxia and hypercapnia Qualified Code(s): J96.21 - Acute and chronic respiratory failure with hypoxia; J96.22 - Acute and chronic respiratory failure with hypercapnia Plan to address problem: Supplemental oxygen, nebulizer therapy, pulse oximetry, noninvasive positive pressure ventilation trial overnight. (2) CHF (congestive heart failure) Current Visit: Yes Status: Acute Qualifiers: Heart failure type: combined systolic and diastolic Heart failure chronicity: acute on chronic Qualified Code(s): I50.43 - Acute on chronic combined systolic (congestive) and diastolic (congestive) heart failure Plan to address problem: Cardiology consulted, strict I/O, afterload reduction, diuresis, daily weight, afterload reduction, outpatient follow-up. (3) Obesity hypoventilation syndrome Current Visit: Yes Status: Acute Plan to address problem: Pulse oximetry, nebulizer therapy, noninvasive positive pressure ventilation, balanced diet, increase physical exercise activity at discharge, outpatient bariatric surgery follow-up. (4) Morbid obesity Current Visit: Yes Status: Chronic Plan to address problem: Balanced diet, increase physical activity at discharge, outpatient bariatric surgery consult at discharge (5) DVT prophylaxis Current Visit: Yes Status: Acute Plan to address problem: SCD to bilateral lower extremities while in bed, prophylactic Lovenox. History Interval history: 48-year-old male hospital day 3 with acute on chronic CHF, obesity hypoventilation, acute hypoxemic respiratory failure, and bilateral lower extremity edema. Patient acknowledges shortness of breath overnight, dyspnea with exertion, and dyspnea at rest. Will treat patient with supplemental oxygen in the daytime and noninvasive positive pressure ventilation nightly. Will conduct trial therapy overnight and if patient tolerates therapy the patient can be discharged in a.m. Patient denies fever, chills, chest pain, palpitations, productive cough, recent ill contacts. No reported nursing events Hospitalist Physical - Constitutional Vitals: Temp Pulse Resp BP Pulse Ox 98.4 F 72 20 147/93 94 02/13/19 10:57 02/13/19 11:00 02/13/19 10:57 02/13/19 11:00 02/13/19 10:57 General appearance: Present: no acute distress, obese - EENT Eyes: Present: PERRL - Neck Neck: Present: supple - Respiratory Respiratory effort: labored Respiratory: bilateral: diminished - Cardiovascular Rhythm: regular Heart Sounds: Present: S1 & S2 - Extremities Extremity abnormal: edema - Abdominal General gastrointestinal: soft, non-tender, non-distended - Integumentary Integumentary: Present: clear, warm, dry - Psychiatric Psychiatric: appropriate mood/affect, intact judgment & insight, memory intact, cooperative - Neurologic Neurologic: CNII-XII intact Results - Labs CBC & Chem 7: 02/11/19 10:36 02/13/19 07:52 Labs: Laboratory Last Values WBC 10.5 K/mm3 (4.5-11.0) 02/11/19 10:36 RBC 4.76 M/mm3 (3.65-5.03) 02/11/19 10:36 Hgb 14.6 gm/dl (11.8-15.2) 02/11/19 10:36 Hct 45.1 % (35.5-45.6) 02/11/19 10:36 MCV 95 fl (84-94) H 02/11/19 10:36 MCH 31 pg (28-32) 02/11/19 10:36 MCHC 32 % (32-34) 02/11/19 10:36 RDW 14.3 % (13.2-15.2) 02/11/19 10:36 Plt Count 185 K/mm3 (140-440) 02/11/19 10:36 Lymph % (Auto) 17.4 % (13.4-35.0) 02/11/19 10:36 [place] % (Auto) 5.3 % (0.0-7.3) 02/11/19 10:36 Eos % (Auto) 0.3 % (0.0-4.3) 02/11/19 10:36 Baso % (Auto) 0.6 % (0.0-1.8) 02/11/19 10:36 Lymph # 1.8 K/mm3 (1.2-5.4) 02/11/19 10:36 [place] # 0.6 K/mm3 (0.0-0.8) 02/11/19 10:36 Eos # 0.0 K/mm3 (0.0-0.4) 02/11/19 10:36 Baso # 0.1 K/mm3 (0.0-0.1) 02/11/19 10:36 Seg Neutrophils % 76.4 % (40.0-70.0) H 02/11/19 10:36 Seg Neutrophils # 8.0 K/mm3 (1.8-7.7) H 02/11/19 10:36 PT 13.9 Sec. (12.2-14.9) 02/11/19 10:36 INR 1.06 (0.87-1.13) 02/11/19 10:36 APTT 29.8 Sec. (24.2-36.6) 02/11/19 10:36 POC ABG pH 7.397 (7.35-7.45) 02/11/19 11:35 POC ABG pCO2 62.7 (35-45) H 02/11/19 11:35 POC ABG pO2 68 (80-105) L 02/11/19 11:35 POC ABG HCO3 38.6 (22-26 mml/L) 02/11/19 11:35 POC ABG Total CO2 40 (23-27mmol/L) 02/11/19 11:35 POC ABG O2 Sat 92 02/11/19 11:35 POC ABG Base Excess 14 ((-2) - (+3)mmol/L) 02/11/19 11:35 FiO2 28 % 02/11/19 11:35 Sodium 141 mmol/L (137-145) 02/13/19 07:52 Potassium 4.4 mmol/L (3.6-5.0) 02/13/19 07:52 Chloride 96.5 mmol/L (98-107) L 02/13/19 07:52 Carbon Dioxide 31 mmol/L (22-30) H 02/13/19 07:52 Anion Gap 18 mmol/L 02/13/19 07:52 BUN 12 mg/dL (9-20) 02/13/19 07:52 Creatinine 0.7 mg/dL (0.8-1.5) L 02/13/19 07:52 Estimated GFR > 60 ml/min 02/13/19 07:52 BUN/Creatinine Ratio 17 % 02/13/19 07:52 Glucose 169 mg/dL (75-100) H 02/13/19 07:52 POC Glucose 141 (70-105) H 02/13/19 13:32 Hemoglobin A1c 7.9 % (4-6) H 02/12/19 08:09 Calcium 9.5 mg/dL (8.4-10.2) 02/13/19 07:52 Phosphorus 2.50 mg/dL (2.5-4.5) 02/11/19 10:36 Magnesium 1.90 mg/dL (1.7-2.3) 02/12/19 08:09 Total Bilirubin 0.80 mg/dL (0.1-1.2) 02/11/19 10:36 AST 10 units/L (5-40) 02/11/19 10:36 ALT 10 units/L (7-56) 02/11/19 10:36 Alkaline Phosphatase 66 units/L (35-129) 02/11/19 10:36 Total Creatine Kinase 94 units/L (55-170) 02/11/19 10:36 Troponin T < 0.010 ng/mL (0.00-0.029) 02/11/19 13:20 NT-Pro-B Natriuret Pep 60.68 pg/mL (0-900) 02/11/19 10:36 Total Protein 8.1 g/dL (6.3-8.2) 02/11/19 10:36 Albumin 3.7 g/dL (3.9-5) L 02/11/19 10:36 Albumin/Globulin Ratio 0.8 % 02/11/19 10:36 Active Medications - Current Medications Current Medications: Generic Name Dose Route Start Last Admin Trade Name Freq PRN Reason Stop Dose Admin Acetaminophen 650 mg 02/11/19 18:42 02/12/19 18:35 Tylenol PO 650 mg Q4H PRN Administration Pain MILD(1-3)/Fever >100.5/MADERA Aspirin 81 mg 02/12/19 10:00 02/13/19 10:59 Halfprin Ec PO 81 mg DAILY MAYITO Administration Atorvastatin Calcium 40 mg 02/11/19 22:00 02/12/19 22:05 Lipitor PO 40 mg QHS MAYITO Administration Dextrose 50 ml 02/11/19 18:42 D50w (25gm) Syringe IV Q30MIN PRN Hypoglycemia Protocol Enoxaparin Sodium 40 mg 02/11/19 22:00 02/12/19 22:04 Enoxaparin SUB-Q 40 mg QDAY@2200 MAYITO Administration Furosemide 40 mg 02/11/19 18:42 02/13/19 05:10 Lasix IV 40 mg BID@0600,1800 MAYITO Administration Lisinopril 20 mg 02/11/19 22:00 02/13/19 11:00 Zestril PO 20 mg BID MAYITO Administration Metformin HCl 500 mg 02/12/19 10:00 02/13/19 11:00 Glucophage PO 500 mg DAILY MAYITO Administration Metolazone 5 mg 02/13/19 17:30 Zaroxolyn PO QDAY MAYITO Nitroglycerin 0.4 mg 02/11/19 11:06 02/11/19 14:06 Nitrostat SL 0.4 mg .Q5MIN PRN Administration Chest Pain Ondansetron HCl 4 mg 02/11/19 18:42 Zofran IV Q8H PRN Nausea And Vomiting Potassium Chloride 10 meq 02/12/19 10:00 02/13/19 10:59 K-Dur PO 10 meq QDAY MAYITO Administration Sodium Chloride 10 ml 02/11/19 18:42 02/11/19 22:36 Sodium Chloride Flush Syringe 10 Ml IV 10 ml PRN PRN Administration LINE FLUSH Nutrition/Malnutrition Assess - Dietary Evaluation Nutrition/Malnutrition Findings: Nutrition Notes Start: 02/12/19 12:30 Freq: Status: Active Protocol: Document 02/12/19 12:31 GODWIN (Rec: 02/12/19 12:45 GODWIN [id number]) Co-Sign 02/12/19 12:31 LP Nutrition Notes Need for Assessment generated from: MD Order,MST Current Diagnosis Diabetes,Hypertension,Heart Failure,Hyperlipidemia Other Pertinent Diagnosis Orthopnea Current Diet Consistent CHO/Cardiac diet Labs/Tests BG 277 Pertinent Medications Lipitor Lasix Height 6 ft Weight 138 kg Usual Body Weight 209 kg [place] Body Weight (kg) 80.90 BMI 41.2 Weight change and time frame Pt stated that he had a 34% wt loss in unknown time frame. Pt stated that his wt has been "on and off''. Wt changes could be from edema and lasix Weight Status Morbidly Obese Subjective/Other Information RD consult for malnutrition and diet education per MD. Pt stated that his appetite has been poor because the thought of eating makes him sick. Pt stated that his appetite has gotten a little better, but mostly the same. 100% of breakfast was eaten. Pt was given education on low sodium and consisitent CHO diet. Pt stated that he doesn't check his glucose at home, but does have access to a meter. Percent of energy/protein needs met: 89%/95% Burn Absent Trauma Absent GI Symptoms None Current % PO Poor (25-49%) Minimum of two criteria No physical signs of malnutrition #1 Nutrition Diagnosis Food and nutrition-related knowledge deficit Etiology Lack of prior knowledge RESPIRATORY CARE PRACTITIONER As Evidenced by Signs and Symptoms Pt reported no known prior knowledge Is patient on ventilator? No Is Patient Ambulatory and/or Out of Bed Yes REE-([place]-St. Jeor-ambulatory/OOB) [ 2961.400 NUTR.MSJOOB] Kcal/Kg value to use for calculation 16 Approximate Energy Requirements Using 2208 kcal/Kg Calculation Used for Recommendations Kcal/kg Additional Notes Protein: 88-110g/kg (0.8-1g/kg AdjBW 110kg) Fluid: 1500-1900mL or per MD Nutrition Intervention Change Diet Order: Continue current Teaching Recipient Patient Learning Readiness Fair Teaching Methods Discussion,Handout Response to Teaching Verbalize understanding Education Handouts Provided Consistent CHO and Low sodium nutrition therapy Barriers to Learning No Barriers RD phone number provided Yes Patient aware of follow up options Yes Goal #1 Meet at least 75% of energy and protein needs. Goal #2 Follow a low Na and Consistent carb diet Anticipated Discharge Needs: Consistent CHO/Cardiac diet Follow-Up By: 02/14/19 Additional Comments F/U for PO intakes and additional diet education needs
[2019-02-13] MEDS: metOLazone 5 MG TAB PO SCH (18:00)
[2019-02-13] MEDS: ENOXAPARIN 40 MG/0.4 ML INJ SUB-Q SCH (21:08)
[2019-02-14] MEDS: FUROSEMIDE 40 MG/4 ML INJ IV SCH ×2 (05:01→18:03)
[2019-02-14 06:50] LABS: BUN/Creatinine Ratio 20; Blood Urea Nitrogen 14 mg/dL (9-20); Hemolysis Index 12
[2019-02-14] MEDS: metOLazone 5 MG TAB PO SCH (09:54)
[2019-02-14] MEDS: POTASSIUM CHLORIDE ER 10 MEQ TAB PO SCH (09:54)
[2019-02-14] MEDS: ASPIRIN EC 81 MG TAB PO SCH (09:54)
[2019-02-14] MEDS: metFORMIN 500 MG TAB PO SCH (09:54)
[2019-02-14] MEDS: LISINOPRIL 20 MG TAB PO SCH ×2 (09:56→22:36)
--- NOTE | 2019-02-14 12:11 | Progress Note ---
Assessment and Plan Pt in sr on tele with SB noted overnight, and freq 2-3 sec pauses noted while sleeping, pt was not wearing CPAP. BB d/c'd. Suspect bradyarrhythmia r/t NICHOLAS. Cont present cardiac management. The patient has been seen in conjunction with Dr. Gil who agrees with the assessment and plan of care. - Patient Problems (1) Acute heart failure with preserved ejection fraction Current Visit: Yes Status: Acute (2) Chest pain Current Visit: Yes Status: Resolved Qualifiers: Qualified Code(s): R07.9 - Chest pain, unspecified (3) Hypertension Current Visit: Yes Status: Chronic Qualifiers: Hypertension type: essential hypertension Qualified Code(s): I10 - Essential (primary) hypertension (4) Sleep apnea Current Visit: Yes Status: Chronic (5) Morbid obesity Current Visit: Yes Status: Chronic (6) Sinus node dysfunction Current Visit: Yes Status: Chronic Subjective Date of service: 02/14/19 Principal diagnosis: hf Interval history: pt resting in bed, no cp, states SOB and BLE edema continue to improve. UOP increased yesterday with addition of zaroxolyn. in sr on tele with SB noted overnight, and freq 2-3 sec pauses noted while sleeping, pt was not wearing CPAP. Objective Last Vital Signs Temp 97.9 F 02/14/19 11:02 Pulse 75 02/14/19 11:02 Resp 20 02/14/19 11:02 BP 127/45 02/14/19 11:02 Pulse Ox 95 02/14/19 11:02 - Physical Examination General: No Apparent Distress HEENT: Positive: PERRL, Normocephaly, Mucus Membranes Moist Neck: Positive: neck supple, trachea midline Cardiac: Positive: Reg Rate and Rhythm, S1/S2 Lungs: Positive: Decreased Breath Sounds Neuro: Positive: Grossly Intact Abdomen: Negative: Tender Skin: Positive: Other (BLE blistering and weeping with serous fluid). Negative: Rash Musculoskeletal: No Pain Extremities: Present: +2 Edema (BLE into thighs) - Labs and Meds Comprehensive Metabolic Panel 02/14/19 Range/Units 05:42 Sodium 141 (137-145) mmol/L Potassium 3.9 (3.6-5.0) mmol/L Chloride 94.9 L (98-107) mmol/L Carbon Dioxide 29 (22-30) mmol/L BUN 14 (9-20) mg/dL Creatinine 0.7 L (0.8-1.5) mg/dL Glucose 173 H (75-100) mg/dL Calcium 10.0 (8.4-10.2) mg/dL - Imaging and Cardiology EKG: report reviewed, image reviewed Echo: report reviewed (04/2018: EF 50%, trace MR, mod LVH, impaired relaxation, RV mild to mod dilated. ) - Telemetry EKG Rhythm: Sinus Rhythm - EKG Sinus rhythms and dysrhythmias: sinus rhythm
--- NOTE | 2019-02-14 16:01 | Discharge Summary ---
Providers - Providers Date of Admission: 02/11/19 12:07 Attending physician: CHON ROSADO 02/11/19 18:42 Consult to Physician [CONS] Routine Comment: Consulting Provider: ASTON SAWANT Physician Instructions: Reason For Exam: chf Consult to Physician [CONS] Routine Comment: Consulting Provider: HENRY NESBITT Physician Instructions: Reason For Exam: obesity hypoventilation? 02/11/19 18:43 Consult to Dietitian/Nutrition [CONS] Routine Physician Instructions: Reason For Exam: Reason for Consult: Diet education 02/11/19 21:03 Consult to Dietitian/Nutrition [CONS] Routine Physician Instructions: Reason For Exam: Reason for Consult: Malnutrition Primary care physician: [facility] Hospitalization Condition: Good Disposition: DC-30 STILL A PATIENT - Discharge Diagnoses (1) Acute and chronic respiratory failure Status: Acute Qualifiers: Respiratory failure complication: hypoxia and hypercapnia Qualified Code(s): J96.21 - Acute and chronic respiratory failure with hypoxia; J96.22 - Acute and chronic respiratory failure with hypercapnia (2) CHF (congestive heart failure) Status: Acute Qualifiers: Heart failure type: combined systolic and diastolic Heart failure chronicity: acute on chronic Qualified Code(s): I50.43 - Acute on chronic combined systolic (congestive) and diastolic (congestive) heart failure (3) Obesity hypoventilation syndrome Status: Acute (4) Morbid obesity Status: Chronic (5) DVT prophylaxis Status: Acute Exam - Constitutional Vitals: Temp Pulse Resp BP Pulse Ox 98.9 F 76 20 164/76 93 02/14/19 15:10 02/14/19 15:10 02/14/19 15:10 02/14/19 15:10 02/14/19 15:10 Plan Follow up with: PARTHA TABOR MD [Primary Care Provider] - 7 Days
--- NOTE | 2019-02-14 18:41 | Progress Note ---
Assessment and Plan (1) Acute and chronic respiratory failure with hypercapnia Current Visit: Yes Status: Acute Plan to address problem: O2 2.5 litres via nasal canula. BIPAP 16/8, rate 16, FIO2 32% during night time and prn for during day time for shortness of breath and day time sleepiness. Albuterol/atrovent aerosol treatments q 6 hours. Continue S/C Lovenox. (2) Acute on chronic heart failure with preserved ejection fraction Current Visit: No Status: Acute Plan to address problem: Management as per cardiology. (3) Hypertensive heart disease Current Visit: Yes Status: Chronic Plan to address problem: Management as per primary care. (4) Morbid obesity Current Visit: Yes Status: Chronic Plan to address problem: Recommend to lose weight. (5) Suspected sleep apnea Current Visit: Yes Status: Chronic Plan to address problem: Sleep study results pending. 2.5 litres via nasal canula. BIPAP 16/8, rate 16, FIO2 32% during night time and prn for during day time for shortness of breath and day time sleepines. (6) Obesity hypoventilation syndrome Current Visit: Yes Status: Acute Plan to address problem: Sleep study results pending. 2.5 litres via nasal canula. BIPAP 16/8, rate 16, FIO2 32% during night time and prn for during day time for shortness of breath and day time sleepines. (7) Leg edema Current Visit: Yes Status: Chronic Plan to address problem: Duplex scan negative for DVT. .... weight loss counseled ...... discharge planning ongoing Subjective Date of service: 02/14/19 Principal diagnosis: Ac and ch hypercapnic resp failure; Ac on Ch HFpEF; HTN; Morbid obesity Interval history: Patient is seen today for: Ac and ch hypercapnic resp failure; AC on Ch HFpEF; HTN; Morbid obesity; Suspected sleep apnea; OHS; Pedal edema Seen and examined at bedside; 24 hour events reviewed; nursing and respiratory care staff consulted; no adverse overnight events reported to me; resting peacefully in bed; feels better; tolerating qhs BIPAP Objective Vital Signs - 12hr 02/14/19 02/14/19 02/14/19 07:14 07:33 08:49 Temperature 98.2 F Pulse Rate 70 34 L Respiratory 20 Rate Blood Pressure 125/67 O2 Sat by Pulse 97 92 Oximetry 02/14/19 02/14/19 02/14/19 09:56 11:02 15:10 Temperature 97.9 F 98.9 F Pulse Rate 70 75 76 Respiratory 20 20 Rate Blood Pressure 125/67 127/45 164/76 O2 Sat by Pulse 95 93 Oximetry Constitutional: no acute distress, alert, other (Morbidly Obese.) Eyes: non-icteric ENT: oropharynx moist Neck: supple, no JVD Effort: mildly labored Ascultation: Bilateral: diminished breath sounds Percussion: Bilateral: not dull Cardiovascular: regular rate and rhythm Gastrointestinal: normoactive bowel sounds, soft, non-tender, non-distended Integumentary: normal Extremities: no cyanosis, no edema, pulses normal, no ischemia or petechiae Neurologic: normal mental status, non-focal exam, pupils equal and round, CN II- XII normal Psychiatric: mood appropriate, affect normal CBC and BMP: 02/11/19 10:36 02/14/19 05:42 ABG, PT/INR, D-dimer: ABG POC ABG pH 7.397 (7.35-7.45) 02/11/19 11:35 POC ABG pCO2 62.7 (35-45) H 02/11/19 11:35 POC ABG pO2 68 (80-105) L 02/11/19 11:35 POC ABG HCO3 38.6 (22-26 mml/L) 02/11/19 11:35 POC ABG Total CO2 40 (23-27mmol/L) 02/11/19 11:35 POC ABG O2 Sat 92 02/11/19 11:35 PT/INR, D-dimer PT 13.9 Sec. (12.2-14.9) 02/11/19 10:36 INR 1.06 (0.87-1.13) 02/11/19 10:36 Abnormal lab findings: Abnormal Labs 02/11/19 02/11/19 02/11/19 10:36 10:36 11:35 MCV 95 H Seg Neutrophils % 76.4 H Seg Neutrophils # 8.0 H POC ABG pCO2 62.7 H POC ABG pO2 68 L Chloride 94.2 L Carbon Dioxide Creatinine Glucose 277 H POC Glucose Hemoglobin A1c Magnesium 1.60 L Albumin 3.7 L 02/11/19 02/12/1902/12/20 21:15 08:09 21:44 MCV Seg Neutrophils % Seg Neutrophils # POC ABG pCO2 POC ABG pO2 Chloride Carbon Dioxide Creatinine Glucose POC Glucose 177 H 170 H Hemoglobin A1c 7.9 H Magnesium Albumin 02/13/19 02/13/19 02/13/19 07:52 07:54 13:32 MCV Seg Neutrophils % Seg Neutrophils # POC ABG pCO2 POC ABG pO2 Chloride 96.5 L Carbon Dioxide 31 H Creatinine 0.7 L Glucose 169 H POC Glucose 162 H 141 H Hemoglobin A1c Magnesium Albumin 02/13/19 02/13/19 02/14/19 17:51 21:02 05:42 MCV Seg Neutrophils % Seg Neutrophils # POC ABG pCO2 POC ABG pO2 Chloride 94.9 L Carbon Dioxide Creatinine 0.7 L Glucose 173 H POC Glucose 115 H 149 H Hemoglobin A1c Magnesium Albumin 02/14/19 02/14/19 08:50 11:10 MCV Seg Neutrophils % Seg Neutrophils # POC ABG pCO2 POC ABG pO2 Chloride Carbon Dioxide Creatinine Glucose POC Glucose 128 H 195 H Hemoglobin A1c Magnesium Albumin Chest x-ray: report reviewed Allied health notes reviewed: nursing
[2019-02-14] MEDS: ENOXAPARIN 40 MG/0.4 ML INJ SUB-Q SCH (22:36)
[2019-02-15] MEDS: FUROSEMIDE 40 MG/4 ML INJ IV SCH (05:56)
[2019-02-15 09:05] VITALS: BP 138/70
[2019-02-15] MEDS: LISINOPRIL 20 MG TAB PO SCH (09:44)
[2019-02-15] MEDS: metOLazone 5 MG TAB PO SCH (09:44)
[2019-02-15] MEDS: POTASSIUM CHLORIDE ER 10 MEQ TAB PO SCH (09:44)
[2019-02-15] MEDS: metFORMIN 500 MG TAB PO SCH (09:44)
[2019-02-15] MEDS: ASPIRIN EC 81 MG TAB PO SCH (09:44)
--- NOTE | 2019-02-15 11:41 | Progress Note ---
Assessment and Plan Pt in sr on tele with SB noted overnight, and freq 2-3 sec pauses noted while sleeping, pt was not wearing CPAP. BB d/c'd. Suspect bradyarrhythmia r/t NICHOLAS. Importance of compliance with PM CPAP reiterated. Currently stable cardiac status. Pt may discharge from cardiology standpoint. At discharge, recommend PO lasix 40mg daily and zaroxolyn 2.5mg daily. Will plan for f/u BMP in our office. Cont all other present cardiac management. Recommend follow up in our office with Dr. Gil within 3-5 days ([phone]). Pt verbalizes understanding. The patient has been seen in conjunction with Dr. Gil who agrees with the assessment and plan of care. - Patient Problems (1) Acute heart failure with preserved ejection fraction Current Visit: Yes Status: Acute (2) Chest pain Current Visit: Yes Status: Resolved Qualifiers: Qualified Code(s): R07.9 - Chest pain, unspecified (3) Hypertension Current Visit: Yes Status: Chronic Qualifiers: Hypertension type: essential hypertension Qualified Code(s): I10 - Essential (primary) hypertension (4) Sleep apnea Current Visit: Yes Status: Chronic (5) Morbid obesity Current Visit: Yes Status: Chronic (6) Sinus node dysfunction Current Visit: Yes Status: Chronic Subjective Date of service: 02/15/19 Principal diagnosis: Ac and ch hypercapnic resp failure; Ac on Ch HFpEF; HTN; Morbid obesity Interval history: pt resting in bed, no cp, states SOB and BLE edema continue to improve. in sr on tele with SB noted overnight, and freq 2-3 sec pauses noted while sleeping, pt was not wearing CPAP. Objective Last Vital Signs Temp 98.4 F 02/15/19 07:55 Pulse 75 02/15/19 11:14 Resp 18 02/15/19 11:14 BP 138/70 02/15/19 07:55 Pulse Ox 93 02/15/19 11:14 - Physical Examination General: No Apparent Distress HEENT: Positive: PERRL, Normocephaly, Mucus Membranes Moist Neck: Positive: neck supple, trachea midline Cardiac: Positive: Reg Rate and Rhythm, S1/S2 Lungs: Positive: Decreased Breath Sounds Neuro: Positive: Grossly Intact Abdomen: Negative: Tender Skin: Positive: Other (BLE blistering and weeping with serous fluid). Negative: Rash Musculoskeletal: No Pain Extremities: Present: +2 Edema (BLE into thighs) - Imaging and Cardiology EKG: report reviewed, image reviewed Echo: report reviewed (04/2018: EF 50%, trace MR, mod LVH, impaired relaxation, RV mild to mod dilated. ) - EKG Sinus rhythms and dysrhythmias: sinus rhythm
== END 2019-02-15 11:50 | disposition home or self-care (01) | DRG 291 ==
LOC: ED 10:00 → 4A 12:07 → EEVIPCON 12:07 → 4A 15:05
PROVIDERS: ADMIT Internal Medicine; ATTEND Internal Medicine
PROC: 4A033R1 Measurement of Arterial Saturation, Peripheral, Percutaneous Approach (ICD-10-PCS; principal; 2019-02-11)
PROC: 5A09357 Assistance with Respiratory Ventilation, Less than 24 Consecutive Hours, Continuous Positive Airway Pressure (ICD-10-PCS; 2019-02-12)
DX: I11.0 Hypertensive heart disease with heart failure (principal); J96.22 Acute and chronic respiratory failure with hypercapnia; J96.21 Acute and chronic respiratory failure with hypoxia; E66.2 Morbid (severe) obesity with alveolar hypoventilation; Z68.44 Body mass index [BMI] 60.0-69.9, adult; I50.43 Acute on chronic combined systolic (congestive) and diastolic (congestive) heart failure; E83.42 Hypomagnesemia; E11.9 Type 2 diabetes mellitus without complications; I16.0 Hypertensive urgency; I49.5 Sick sinus syndrome; Z79.84 Long term (current) use of oral hypoglycemic drugs
CPT/HCPCS: 36415; 71046; 80048; 80053; 82550; 82803; 82962; 83036; 83735; 83880; 84100; 84484; 85025; 85610; 85730; 93005; 93010; 93970; 94660; 94760; G0378; A9270-GY; J1650; J1940